=== PATIENT | female | born 1960 | race Caucasian/White ===

== ENCOUNTER 2019-08-29 21:45 | Emergency (ER) | payer MEDICARE, SELFPAY ==
[2019-08-29 21:54] VITALS: BP 125/67; PULSE 79; RESP 18; TEMP 37.2; O2SAT 98; BMI 43.2
--- NOTE | 2019-08-29 22:19 | ED.ABDPAIN ---
HPI - Abdominal Pain General Chief Complaint: Abdominal Pain Stated Complaint: Pain control Time Seen by Provider: 08/29/19 21:53 Source: patient and EMS Mode of arrival: EMS Limitations: no limitations History of Present Illness HPI narrative: 59-year-old female who has not been seen in this emergency department in the past here for evaluation of sudden onset right upper quadrant abdominal pain. Patient does have a history of neuroendocrine tumors. Has known metastasis to the liver with multiple lesions. Also has lymph nodes in the right upper quadrant as well. Patient reports that earlier today she had a sudden onset of right upper quadrant abdominal pain. States she has had this pain in the past but has not been this bad since she was 1st diagnosed with cancer. She is currently undergoing treatment for her cancer. She states that she has a very difficult time tolerating opioid pain medications. She states she currently does not take any opioid pain medications at home. At 1 point she was taking 1/2 tablet of a hydrocodone/acetaminophen at home with some Zofran was becoming very nauseous with this or her primary doctor told her to stop taking it. There was some discussion about placing her on a fentanyl patch however the patient has sleep apnea and the mass that she currently uses is damaged and so her primary doctor did not want to put her on the fentanyl patches for concerns of respiratory depression at night when she sleeps in the problems that may ensue. Patient called her primary doctor's office today for the right upper quadrant abdominal pain was told to come to the emergency department for evaluation. She declined any opiate pain medication by EMS in route. Related Data Previous Rx's Medication Instructions Recorded oxycodone-acetaminophen [Percocet] 1 tab PO Q4-6H PRN #20 tab 08/30/19 promethazine 25 mg PO Q4-6H PRN #20 tab 08/30/19 Allergies Allergy/AdvReac Type Severity Reaction Status Date / Time hydromorphone [From Dilaudid] AdvReac Verified 08/29/19 22:01 morphine AdvReac Verified 08/29/19 22:01 Penicillins AdvReac Verified 08/29/19 22:01 prochlorperazine AdvReac Verified 08/29/19 22:01 [From Compazine] Sulfa (Sulfonamide AdvReac Verified 08/29/19 22:01 Antibiotics) Review of Systems Constitutional Constitutional: Denies fever(s) Cardiovascular Cardiovascular: Denies chest pain Respiratory Comments: Shortness of breath secondary to pain in the right upper quadrant with deep breaths Gastrointestinal Gastrointestinal: Reports abdominal pain, Denies change in stool character, Denies nausea and Denies vomiting Genitourinary Genitourinary: Denies dysuria Musculoskeletal Musculoskeletal: Denies back pain and Denies arthralgias Integumentary/Breasts Skin/Breast: Denies lesions and Denies rash Neurologic Neurologic: Denies behavioral changes Psychiatric Psychiatric: Denies behavioral changes Hematologic/Lymphatic Hematologic/Lymphatic: Denies easy bleeding and Denies easy bruising [facility] Medical History Neuroendocrine cancer (Acute) Social History Smoking Status: Never smoker Social History Smoking Status: Never smoker Exam Initial Vital Signs Initial Vital Signs: Vital Signs Temperature 99.0 F 08/29/19 21:54 Pulse Rate 79 08/29/19 21:54 Respiratory Rate 18 08/29/19 21:54 Blood Pressure 125/67 08/29/19 21:54 Pulse Oximetry 98 08/29/19 21:54 Const General: No comfortable (Comfortable), well developed and well groomed Orientation: alert, awake and oriented x3 HENMT Head: normal to inspection and normocephalic Resp Effort & Inspection: normal respiratory effort Auscultation: clear to auscultation bilaterally Cardio Rate: regular rate Rhythm: regular rhythm GI Inspection: non-distended Palpation: soft, No firm and tender (Right upper quadrant/epigastric) Back/Spine/Pelvis Back: No CVA tenderness Skin Lesions: no lesions Rashes: no rashes Neuro General: alert and awake Cognition: normal cognition Speech: speech normal Extrem General: normal to inspection and capillary refill normal Psych Appearance: grossly normal and well kempt Course Orders Ordered: ED Orders 08/29/19 21:57 EKG-12 Lead Routine 08/29/19 22:20 CT abdomen pelvis w con Stat 08/29/19 22:50 Complete Blood Count AUTO DIFF Stat Comprehensive Metabolic Panel Stat Lipase Stat Discontinued Medications Hydromorphone HCl (Dilaudid) 1 mg IV NOW ONE Stop: 08/29/19 22:20 Last Admin: 08/29/19 22:42 Dose: 1 mg Documented by: NE Hydromorphone HCl (Dilaudid) 1 mg IV NOW ONE Stop: 08/29/19 23:33 Last Admin: 08/29/19 23:45 Dose: 1 mg Documented by: TAYLER Sodium Chloride (Normal Saline 0.9%) 1,000 mls @ 125 mls/hr IV CONT ALVIN Last Infusion: 08/30/19 02:06 Dose: 0 mls/hr Documented by: Admin: 08/29/19 22:43 Dose: 125 mls/hr Documented by: NE Ondansetron HCl (Zofran) 4 mg IV NOW ONE Stop: 08/29/19 22:20 Last Admin: 08/29/19 22:43 Dose: 4 mg Documented by: NE Ondansetron HCl (Zofran Odt Prepack) 1 bottle MISC SEEINSTR ONE Stop: 08/30/19 01:38 Last Admin: 08/30/19 01:51 Dose: 1 bottle Documented by: SHUBHAM Oxycodone/Acetaminophen (Endocet 5/325 Prepack) 1 bottle MISC SEEINSTR ONE Stop: 08/30/19 01:38 Last Admin: 08/30/19 01:50 Dose: 1 bottle Documented by: SHUBHAM Vital Signs Vital signs: Vital Signs - 8 hr 08/29/19 21:54 08/29/19 23:07 08/30/19 00:00 Temperature 99.0 F Pulse Rate 79 82 86 Respiratory Rate 18 16 Blood Pressure 125/67 Blood Pressure [Left Arm] 111/54 L 114/57 L Pulse Oximetry 98 93 93 08/30/19 01:40 Temperature Pulse Rate 77 Respiratory Rate 15 Blood Pressure Blood Pressure [Left Arm] 130/72 Pulse Oximetry 94 MDM - Abdominal Pain Lab Data Attestation: I reviewed the patient's lab results. Result diagrams: 08/29/19 22:50 08/29/19 22:50 Labs: Lab Results 08/29/19 08/29/19 Range/Units 22:50 22:50 WBC 8.9 (4.5-11.0) X10^3/uL RBC 4.27 (4.0-5.2) X10^6/uL Hgb 13.9 (12.0-16.0) g/dL Hct 40.4 (36-46) % MCV 94.7 (80-100) fL MCH 32.6 (26-34) PG MCHC 34.4 (30-36) % RDW 14.1 (11.6-14.8) % Plt Count 258 (150-400) X10^3/uL Neut % (Auto) 79.0 H (50-75) % Lymph % (Auto) 12.8 L (25-40) % [place] % (Auto) 4.9 (3-14) % Eos % (Auto) 2.8 (2-4) % Baso % (Auto) 0.5 (0-2) % Neut # (Auto) 7000 (1227-4957) /uL Lymph # (Auto) 1100 (3509-7747) /uL [place] # (Auto) 400 (0-900) /uL Eos # (Auto) 200 (0-450) /uL Baso # (Auto) 0 (0-100) /uL Sodium 136 L (137-145) mmol/L Potassium 4.4 (3.4-5.1) mmol/L Chloride 100 (98-107) mmol/L Carbon Dioxide 27 (22-32) mmol/L BUN 17 (7-17) mg/dL Creatinine 0.70 (0.52-1.04) mg/dL Estimated GFR > 60.0 (>60) mL/min BUN/Creatinine Ratio 24.3 H (6-22) Glucose 325 H (80-110) mg/dL Calcium 9.2 (8.4-10.2) mg/dL Total Bilirubin 0.5 (0.2-1.3) mg/dL AST 67 H (14-36) IU/L ALT 30 (9-52) IU/L Alkaline Phosphatase 246 H (38-126) U/L Total Protein 7.6 (6.3-8.2) g/dL Albumin 3.8 (3.5-5.0) g/dL Globulin 3.8 (1.7-4.1) g/dL Albumin/Globulin Ratio 1.0 (1.0-2.8) Lipase 321 H (23-300) U/L Imaging Data CT scan - abdomen: Radiologist's impression: Multiple ill-defined hypoattenuating lesions present within the liver. Additionally there are enlarged emil hepatic lymph nodes. Findings right suspicion for metastatic disease. Recommend correlation with prior imaging and clinical history of available. Multiple coli lithiasis present within the gallbladder no stigmata of cholecystitis. Multi fenestrated anterior abdominal wall hernias at midline. Mild to moderate colonic diverticulosis without evidence of diverticulitis ECG Data Attestation: I personally reviewed and interpreted this ECG as follows: Prior ECG tracings: not available for review Interpretation: Sinus rhythm Ventricular rate is 77 Normal axis Normal QRS Normal QTC No ST T wave changes MDM Narrative Medical decision making narrative: Patient did tolerate the IV Dilaudid when it was given relatively slowly. She did not have any vomiting here in the ER. She did report some improvement of her right upper quadrant pain after the medications however she states that it does hurt when she takes a very deep breath. She does have cholelithiasis however no signs of cholecystitis. I do not believe that this is the cause of her symptoms. I have a high suspicion that her symptoms are related to the neuroendocrine tumors which are known in the right upper quadrant. Her sister who was with the patient at bedside states that they were just told recently that there is lymph node involvement which is new over the past several months. Despite not having prior CT scans to compare I do not think that there is any emergent issue with the findings in the right upper quadrant. Had a long discussion with the patient and her sister regarding her symptoms. We did discuss being admitted to the hospital for pain control however I informed them that since she is not on any oral pain medications at home and has not been on Phenergan as an alternative to the Zofran for her nausea that I feel that a trial of oral pain medications with changing the nausea medication would be a reasonable approach to her symptoms. I did inform the patient that I feel that spending as much time at home and outside of the hospital situation would be the best for her given her current clinical scenario. I did inform them that she could return to the emergency department at any point for symptoms were not controlled. She is working on getting the CPAP mask replaced so that she could potentially try other medications such as fentanyl patches. She is under the care with her primary doctor regarding this. After this discussion they did decide to go home with medications. They were provided pre packs for some of them in prescriptions. They expressed understanding and agreement this plan. Discharge Plan Departure Patient Disposition: Home Clinical Impression: Neuro-endocrine cancer Abdominal pain Qualifiers: Abdominal location: right upper quadrant Qualified Code(s): R10.11 - Right upper quadrant pain Discharge Date/Time: 08/30/19 02:08 Instructions: Coping With Pain Related to Cancer and Chemotherapy Activity Restrictions/Additional Instructions: I recommend that tomorrow you contact your primary provider and also your oncologist to discuss further workup. Take the medications as directed. Return to the emergency department for any new or worsening symptoms Prescriptions: New oxycodone-acetaminophen [Percocet] 5-325 mg tablet 1 tab PO Q4-6H PRN (Reason: pain) Qty: 20 RF: 0 promethazine 25 mg tablet 25 mg PO Q4-6H PRN (Reason: nausea and vomiting) Qty: 20 RF: 0
--- NOTE | 2019-08-29 22:20 | DI.CT.S_ITS ---
PROCEDURE: CT ABDOMEN PELVIS W CON INDICATIONS: Right-sided abdominal pain TECHNIQUE: After the administration of intravenous contrast, 5 mm thick sections acquired from the diaphragm to the symphysis. 5 mm coronal and sagittal reformats were acquired. For radiation dose reduction, the following was used: automated exposure control, adjustment of mA and/or kV according to patient size. COMPARISON: None. FINDINGS: Image quality: Excellent. ABDOMEN: Lung bases: Lung bases are clear. Heart size is normal. Solid organs: There are multiple hepatic hypodensities of the left and right hepatic lobes. The largest lesion is in the petrous segment of right hepatic lobe (segment VII) and 2.2 cm. Liver demonstrates nodular contour suggesting cirrhosis. Liver is normal in size. There is a recannulized umbilical vein, likely secondary to portal hypertension. Gallbladder contains gallstones. Biliary system is non dilated. There are punctate foci of calcification in the pancreas, likely sequelae of chronic pancreatitis. There are several small low density nodule in spleen. Spleen is normal in size. No adrenal nodules. Kidneys demonstrate normal size and enhancement, without hydronephrosis. Peritoneum and bowel: Normal appendix. Bowel loops demonstrate normal wall thickness and caliber. There are a few colonic diverticula. No active diverticulitis. No free fluid or air. Nodes and vessels: Mildly enlarged periportal lymph nodes are present, measuring 1.5 cm. No mesenteric adenopathy by size criteria. Aorta and inferior vena cava are normal in size. Miscellaneous: There is a fat containing ventral hernia. There are multiple subcutaneous soft tissue nodules over the left area. PELVIS: Genitourinary: Bladder wall thickness is normal. Uterus is normal. Ovaries are not well seen. No pathological free fluid in pelvis. Miscellaneous: No inguinal hernias or adenopathy. Bones: No suspicious bony lesions. No vertebral body compression fractures. Degenerative changes in thoracic and lumbar spine. IMPRESSION: 1. There are multiple small hypodensities in liver concerning for metastatic disease. Liver protocol MRI is recommended for further evaluation. 2. Liver demonstrates nodular contour suggesting cirrhosis. Recannulized umbilical vein suggesting portal hypertension. 3. Several tiny low density nodules in spleen, too small to further characterize, therefore, indeterminate. 4. Mild periportal lymphadenopathy. 5. Diverticulosis without diverticulitis. 6. Cholelithiasis. 7. Fat containing ventral hernia. 8. There are multiple small subcutaneous nodules over the iliac area, uncertain etiology. Recommend clinical correlation and followup. Dictated by: Bill Higgins M.D. on 08/30/2019 at 7:59 Approved by: Bill Higgins M.D. on 08/30/2019 at 8:16
[2019-08-29] MEDS: HYDROMORPHONE 1 MG INJ IV ×2 (22:42→23:45)
[2019-08-29] MEDS: ONDANSETRON 4 MG/2 ML INJ IV (22:43)
[2019-08-29] MEDS: SODIUM CHLORIDE 0.9% 1,000 ML 125 ML IV (22:43)
[2019-08-29 23:07] VITALS: BP 111/54; PULSE 82; RESP 16; O2SAT 93
[2019-08-29 23:11] LABS: Add Manual Diff / Slide Review NO; Basophils Absolute Auto 0 /uL (0-100); Basophils Percent Auto 0.5 % (0-2); Eosinophils Absolute Auto 200 /uL (0-450); Eosinophils Percent Auto 2.8 % (2-4); Hematocrit 40.4 % (36-46); Hemoglobin 13.9 g/dL (12.0-16.0); Lymphocytes Absolute Auto 1100 /uL (1100-4500); Lymphocytes Percent Auto 12.8 % (25-40); Mean Corpuscular HGB Conc 34.4 % (30-36); Mean Corpuscular Hemoglobin 32.6 PG (26-34); Mean Corpuscular Volume 94.7 fL (80-100); Monocytes Absolute Auto 400 /uL (0-900); Monocytes Percent Auto 4.9 % (3-14); Neutrophils Absolute Auto 7000 /uL (1500-7000); Platelet Count 258 X10^3/uL (150-400); Red Blood Cell Count 4.27 X10^6/uL (4.0-5.2); Red Cell Distribution Width 14.1 % (11.6-14.8); White Blood Cell Count 8.9 X10^3/uL (4.5-11.0)
[2019-08-29 23:17] LABS: Alanine Aminotransferase 30 IU/L (9-52); Albumin 3.8 g/dL (3.5-5.0); Alkaline Phosphatase 246 U/L (38-126); Aspartate Aminotransferase 67 IU/L (14-36); BUN Creatinine Ratio 24.3 (6-22); Bilirubin Total 0.5 mg/dL (0.2-1.3); Blood Urea Nitrogen 17 mg/dL (7-17); Calcium 9.2 mg/dL (8.4-10.2); Carbon Dioxide 27 mmol/L (22-32); Chloride 100 mmol/L (98-107); Estimated Glomerular Filt Rate > 60.0 mL/min (>60); Globulin 3.8 g/dL (1.7-4.1); Glucose 325 mg/dL (80-110); Lipase 321 U/L (23-300); Sodium 136 mmol/L (137-145); Total Protein 7.6 g/dL (6.3-8.2)
[2019-08-29 23:18] LABS: HEMOLYSIS 96 (0-50); Potassium 4.4 mmol/L (3.4-5.1)
[2019-08-30] VITALS: BP 114/57; PULSE 86; O2SAT 93
[2019-08-30 01:40] VITALS: BP 130/72; PULSE 77; RESP 15; O2SAT 94
[2019-08-30] MEDS: OXYCODONE/APAP 5/325 PREPACK 1 BOTTLE MISC (01:50)
[2019-08-30] MEDS: ONDANSETRON 4 MG ODT PREPACK 1 BOTTLE MISC (01:51)
== END 2019-08-30 02:08 | disposition home or self-care (01) ==
PROVIDERS: Emergency Provider Emergency Medicine
DX: C7A.8 Other malignant neuroendocrine tumors (principal); R10.11 Right upper quadrant pain; R11.2 Nausea with vomiting, unspecified; R06.02 Shortness of breath
CPT/HCPCS: 36415; 74177; 80053; 83690; 85025; 93005; 96361; 96374; 96375; 96376; 99283; 99285; J1170; J2405; Q9967

== ENCOUNTER → 2019-09-15 13:22 | Outpatient (CLI) | payer MEDICARE, SELFPAY ==
--- NOTE | 2019-09-15 | DI.CT.S_ITS ---
PROCEDURE: CT CHEST W CON INDICATIONS: epigastric pain TECHNIQUE: After the administration of intravenous contrast, 5 mm thick sections acquired from the pulmonary apices to the posterior costophrenic angles. 1 mm axial lung, 5 mm thick coronal and sagittal reformats and 7 mm axial MIP were acquired. For radiation dose reduction, the following was used: automated exposure control, adjustment of mA and/or kV according to patient size. COMPARISON: [facility], CT, CT ABDOMEN PELVIS W CON, 08/30/2019, 0:30. FINDINGS: Image quality: Excellent. Lungs and pleura: No acute air space opacities. No pleural effusions or pneumothorax. Central and peripheral airways are patent and normal in caliber. Mediastinum: Heart size is mildly enlarged. No pericardial effusion. Mildly enlarged mediastinal lymph nodes are seen measures up to 12 mm in short axis diameter in the precarinal space. No gross hilar lymphadenopathy by size criteria. Thoracic aorta and central pulmonary arteries are normal in size. Esophagus is normal in caliber. No hiatal hernia. Bones and chest wall: No suspicious bony lesions. No vertebral body compression fractures. No axillary or supraclavicular adenopathy by size criteria. Thyroid gland is within normal limits. Abdomen: Numerous hypodense lesions are seen scattered throughout visualized liver parenchyma, unchanged from previous CT of abdomen and pelvis study consistent with liver metastasis. Lobulated liver contour suggestive of cirrhosis is also seen. There are multiple calcified gallstones. No gallbladder wall thickening or pericholecystic fluid. Upper abdominal bowel loops are normal in caliber. IMPRESSION: 1. No thoracic aortic aneurysm or dissection. No gross pulmonary emboli. Mild cardiomegaly, no pericardial effusion. 2. Nonspecific mildly enlarged mediastinal lymph nodes. No supraclavicular or axillary lymphadenopathy. 3. Bilateral lung garcia are clear. 4. Suggestion of extensive liver metastatic disease. Cholelithiasis, no CT evidence of acute cholecystitis. Dictated by: Uriel Adames M.D. on 09/15/2019 at 14:28 Approved by: Uriel Adames M.D. on 09/15/2019 at 14:38
[2019-09-15 13:48] LABS: Add Manual Diff / Slide Review NO; Basophils Absolute Auto 0 /uL (0-100); Basophils Percent Auto 0.3 % (0-2); Eosinophils Absolute Auto 200 /uL (0-450); Eosinophils Percent Auto 2.4 % (2-4); Hematocrit 41.4 % (36-46); Lymphocytes Absolute Auto 900 /uL (1100-4500); Lymphocytes Percent Auto 9.9 % (25-40); Mean Corpuscular HGB Conc 33.9 % (30-36); Mean Corpuscular Hemoglobin 32.1 PG (26-34); Mean Corpuscular Volume 94.5 fL (80-100); Monocytes Absolute Auto 600 /uL (0-900); Monocytes Percent Auto 6.7 % (3-14); Neutrophils Absolute Auto 7200 /uL (1500-7000); Neutrophils Percent Auto 80.7 % (50-75); Platelet Count 378 X10^3/uL (150-400); Red Blood Cell Count 4.38 X10^6/uL (4.0-5.2); White Blood Cell Count 8.9 X10^3/uL (4.5-11.0)
[2019-09-15 14:00] LABS: Alanine Aminotransferase 35 IU/L (9-52); Albumin 3.9 g/dL (3.5-5.0); Alkaline Phosphatase 281 U/L (38-126); Amylase 53 U/L (30-110); Aspartate Aminotransferase 68 IU/L (14-36); Bilirubin Total 0.6 mg/dL (0.2-1.3); Blood Urea Nitrogen 14 mg/dL (7-17); Calcium 9.3 mg/dL (8.4-10.2); Carbon Dioxide 32 mmol/L (22-32); Chloride 98 mmol/L (98-107); Estimated Glomerular Filt Rate > 60.0 mL/min (>60); Globulin 3.8 g/dL (1.7-4.1); Glucose 228 mg/dL (80-110); HEMOLYSIS < 15 (0-50); Lipase 35 U/L (23-300); Potassium 4.2 mmol/L (3.4-5.1); Sodium 137 mmol/L (137-145); Total Protein 7.7 g/dL (6.3-8.2)
== END ==
PROVIDERS: PCP Internal Medicine; Visit Provider Internal Medicine
DX: R10.13 Epigastric pain (principal)
CPT/HCPCS: 36415; 71260; 80053; 82150; 83690; 84484; 85025

== ENCOUNTER 2019-09-15 16:17 | Emergency (ER) | payer MEDICARE, SELFPAY ==
[2019-09-15 16:25] VITALS: PULSE 72; RESP 20; O2SAT 100
--- NOTE | 2019-09-15 16:26 | DI.RAD.S_ITS ---
PROCEDURE: XR CHEST 2V INDICATIONS: chest pain TECHNIQUE: 2 views of the chest were acquired. COMPARISON: None. FINDINGS: Surgical changes and devices: Surgical clips in the right breast tissue. Lungs and pleura: Lungs are clear. No pleural effusions or pneumothorax. Mediastinum: Mediastinal contours are normal. Heart size is normal. Bones and chest wall: No suspicious bony abnormalities. Soft tissues appear unremarkable. IMPRESSION: No acute cardiopulmonary disease. Dictated by: Fauzia Rodriguez M.D. on 09/15/2019 at 17:40 Approved by: Fauzia Rodriguez M.D. on 09/15/2019 at 17:41
[2019-09-15 16:53] LABS: Add Manual Diff / Slide Review NO; Basophils Absolute Auto 0 /uL (0-100); Basophils Percent Auto 0.2 % (0-2); Eosinophils Absolute Auto 200 /uL (0-450); Eosinophils Percent Auto 2.6 % (2-4); Hematocrit 41.3 % (36-46); Lymphocytes Absolute Auto 900 /uL (1100-4500); Lymphocytes Percent Auto 10.7 % (25-40); Mean Corpuscular HGB Conc 33.8 % (30-36); Mean Corpuscular Hemoglobin 31.7 PG (26-34); Mean Corpuscular Volume 93.8 fL (80-100); Monocytes Absolute Auto 500 /uL (0-900); Monocytes Percent Auto 6.5 % (3-14); Neutrophils Absolute Auto 6400 /uL (1500-7000); Platelet Count 387 X10^3/uL (150-400); Red Blood Cell Count 4.41 X10^6/uL (4.0-5.2); Red Cell Distribution Width 14.1 % (11.6-14.8)
[2019-09-15 17:00] LABS: INR 1.2 (0.9-1.3); Prothrombin Time 13.7 SECONDS (10.1-12.7)
[2019-09-15 17:03] LABS: PTT Partial Thromboplastin Tim 35 SECONDS (26.4-36.2)
[2019-09-15 17:09] LABS: Alanine Aminotransferase 28 IU/L (9-52); Albumin Globulin Ratio 1.1 (1.0-2.8); Alkaline Phosphatase 277 U/L (38-126); Aspartate Aminotransferase 61 IU/L (14-36); BUN Creatinine Ratio 21.4 (6-22); Bilirubin Total 0.7 mg/dL (0.2-1.3); Blood Urea Nitrogen 15 mg/dL (7-17); Calcium 9.3 mg/dL (8.4-10.2); Carbon Dioxide 29 mmol/L (22-32); Chloride 97 mmol/L (98-107); Creatine Kinase 235 U/L (30-135); Estimated Glomerular Filt Rate > 60.0 mL/min (>60); Globulin 3.7 g/dL (1.7-4.1); Glucose 302 mg/dL (80-110); HEMOLYSIS < 15 (0-50); Lipase 65 U/L (23-300); Sodium 137 mmol/L (137-145); Total Protein 7.7 g/dL (6.3-8.2)
--- NOTE | 2019-09-15 17:11 | ED_ITS ---
HPI - Chest Pain General Chief Complaint: Chest Pain Stated Complaint: sent by doctor due to abnormal lab results and CP Time Seen by Provider: 09/15/19 16:46 Source: patient and family Mode of arrival: Ambulatory Limitations: no limitations History of Present Illness HPI narrative: 59F nonsmoker with history of breast cancer and neuroendocrine cancer being managed by Jocelyn weber presents for evaluation of abnormal labs. Patient has had an episode of some chest pain that radiated into her neck on Friday, she says it felt kind of like spasms and was intense but it faded and she did not think anything more of it. Since then she has been a bit fatigued and under the weather but not much in the way of other symptoms. She saw her primary care provider as an outpatient who ordered some labs and noted a cri tical troponin of 6.0. She also had a CT scan of her chest with IV contrast. She was sent here for further evaluation. She denies any provocation, palliation of her symptoms the radiation that she mentioned was on Friday but not since. She has no ongoing pain just profound fatigue and exhaustion. MD complaint: chest pain Onset (ago): day(s) Duration: improved and now resolved Onset: during rest Pain location: substernal Severity: moderate Quality: tightness and aching Pain radiation: none Related Data Home Medications Medication Instructions Recorded Confirmed cholecalciferol (vitamin D3) 50,000 unit PO QWEEK 09/15/19 09/15/19 duloxetine 30 mg PO BID 09/15/19 09/15/19 gabapentin 100 mg PO DIRECTED 09/15/19 09/15/19 insulin aspart U-100 [Novolog 0 unit SUBCUT DIRECTED 09/15/19 Flexpen U-100 Insulin] insulin degludec [Tresiba 90 unit SUBCUT DAILY 09/15/19 FlexTouch U-200] letrozole 2.5 mg PO DAILY 09/15/19 09/15/19 lorazepam 1 mg PO BEDTIME PRN 09/15/19 09/15/19 naloxone [Narcan] 1 spray INTRANASAL PRN PRN 09/15/19 09/15/19 nystatin-triamcinolone 1 applic TOPICAL BID 09/15/19 09/15/19 oxycodone 5 - 10 mg PO Q4-6H PRN 09/15/19 09/15/19 Previous Rx's Medication Instructions Recorded promethazine 25 mg PO Q4-6H PRN #20 tab 08/30/19 Allergies Allergy/AdvReac Type Severity Reaction Status Date / Time hydromorphone [From Dilaudid] AdvReac Verified 08/29/19 22:01 morphine AdvReac Verified 08/29/19 22:01 Penicillins AdvReac Verified 08/29/19 22:01 prochlorperazine AdvReac Verified 08/29/19 22:01 [From Compazine] Sulfa (Sulfonamide AdvReac Verified 08/29/19 22:01 Antibiotics) Review of Systems Constitutional Constitutional: Denies chills, Denies fatigue, Denies fever(s), Denies frequent falls, Denies lethargy and Reports weakness Eyes Eyes: Denies change in vision, Denies eye discharge, Denies irritation and Denies loss of vision ENT Ears, Nose, Mouth, and Throat: Denies change in voice, Denies dizziness, Denies neck pain, Denies sore throat and Denies throat swelling Cardiovascular Cardiovascular: Reports chest pain, Denies irregular heart rhythm, Denies lightheadedness, Denies palpitations, Denies dyspnea, Denies dyspnea on exertion and Denies orthopnea Respiratory Respiratory: Denies cough, Denies dyspnea, Denies dyspnea on exertion and Denies wheezing Gastrointestinal Gastrointestinal: Denies abdominal pain, Denies change in bowel habits, Denies diarrhea, Denies nausea and Denies vomiting Genitourinary Genitourinary: Denies hematuria, Denies flank pain, Denies urinary incontinence and Denies urinary urgency Musculoskeletal Musculoskeletal: Denies back pain, Denies muscle weakness, Denies neck pain, Denies numbness and Denies tingling Integumentary/Breasts Skin/Breast: Denies pruritus, Denies erythema, Denies rash and Denies wounds Neurologic Neurologic: Denies behavioral changes, Denies confusion, Denies dizziness, Denies frequent falls, Denies loss of vision, Denies numbness, Denies tingling and Reports weakness Psychiatric Psychiatric: Denies anxiety, Denies behavioral changes, Denies confusion, Denies depression, Denies homicidal ideation and Denies suicidal ideation Endocrine Endocrine: Denies fatigue, Denies flushing and Denies palpitations Hematologic/Lymphatic Hematologic/Lymphatic: Denies easy bruising Allergic/Immunologic Allergic/Immunologic: Denies urticaria, Denies throat swelling and Denies wheezing Patient History Medical History Neuroendocrine cancer (Acute) Social History Smoking Status: Never smoker alcohol intake frequency: 0-2 drinks per day Substance Use Type: does not use Exam Narrative Exam Narrative: GENERAL: [59] year old patient appears stated age. Well-nourished, well-developed patient, in mild distress. HEAD: Atraumatic. Normocephalic. EYES: Pupils equal round and reactive. Extraocular motions intact. No scleral icterus. No injection or drainage. ENT: Nose without bleeding, purulent drainage. Throat without erythema, tonsillar hypertrophy or exudate. Airway patent. NECK: Trachea midline. Non tender CARDIOVASCULAR: Regular rate and rhythm without murmurs, gallops, or rubs. RESPIRATORY: Clear to auscultation. Breath sounds equal bilaterally. No wheezes, rales, or rhonchi. GASTROINTESTINAL: Abdomen soft, non-tender, nondistended. EXTREMITIES: No edema or joint tenderness. BACK: Nontender without deformity or crepitance. No flank tenderness. NEURO: AOx3. SKIN: No rash or erythema of visible areas Initial Vital Signs Initial Vital Signs: Vital Signs Pulse Rate 72 09/15/19 16:25 Respiratory Rate 20 09/15/19 16:25 Pulse Oximetry 100 09/15/19 16:25 Course Orders Ordered: ED Orders 09/15/19 16:26 XR chest 2V Stat 09/15/19 16:31 EKG-12 Lead Stat 09/15/19 16:46 Complete Blood Count AUTO DIFF Stat Comprehensive Metabolic Panel Stat Lipase Stat Partial Thromboplastin Time Stat Prothrombin Time INR Stat Troponin & CK Cardiac Panel Stat Heparin Sodium/Dextrose (Heparin Drip) 25,000 unit in 500 mls @ 20 mls/hr IV CONT ALVIN; Protocol Last Admin: 09/15/19 18:59 Dose: 1,000 units/hr, 20 mls/hr Documented by: CRISTINA Discontinued Medications Aspirin (Aspirin Chew) 324 mg PO NOW ONE Stop: 09/15/19 18:34 Last Admin: 09/15/19 18:58 Dose: 324 mg Documented by: CRISTINA Heparin Sodium (Porcine) (Heparin) 7,500 unit IV NOW ONE Stop: 09/15/19 18:34 Last Admin: 09/15/19 18:59 Dose: 7,500 unit Documented by: CHAPISOTEM Consultations Consultation #1: call to hospitalist at , happy to accept. Vital Signs Vital signs: Vital Signs - 8 hr 09/15/19 16:25 09/15/19 17:31 Temperature 98.5 F Pulse Rate 72 70 Respiratory Rate 20 18 Blood Pressure [Left Wrist] 97/60 Pulse Oximetry 100 MDM - Chest Pain Lab Data Result diagrams: 09/15/19 16:46 09/15/19 16:46 Labs: Lab Results 09/15/19 09/15/19 09/15/19 Range/Units 16:46 16:46 16:46 WBC 8.0 (4.5-11.0) X10^3/uL RBC 4.41 (4.0-5.2) X10^6/uL Hgb 14.0 (12.0-16.0) g/dL Hct 41.3 (36-46) % MCV 93.8 (80-100) fL MCH 31.7 (26-34) PG MCHC 33.8 (30-36) % RDW 14.1 (11.6-14.8) % Plt Count 387 (150-400) X10^3/uL Neut % (Auto) 80.0 H (50-75) % Lymph % (Auto) 10.7 L (25-40) % [place] % (Auto) 6.5 (3-14) % Eos % (Auto) 2.6 (2-4) % Baso % (Auto) 0.2 (0-2) % Neut # (Auto) 6400 (0158-6008) /uL Lymph # (Auto) 900 L (2316-0703) /uL [place] # (Auto) 500 (0-900) /uL Eos # (Auto) 200 (0-450) /uL Baso # (Auto) 0 (0-100) /uL PT 13.7 H (10.1-12.7) SECONDS INR 1.2 (0.9-1.3) APTT 35 (26.4-36.2) SECONDS Sodium 137 (137-145) mmol/L Potassium 4.0 (3.4-5.1) mmol/L Chloride 97 L (98-107) mmol/L Carbon Dioxide 29 (22-32) mmol/L BUN 15 (7-17) mg/dL Creatinine 0.70 (0.52-1.04) mg/dL Estimated GFR > 60.0 (>60) mL/min BUN/Creatinine Ratio 21.4 (6-22) Glucose 302 H (80-110) mg/dL Calcium 9.3 (8.4-10.2) mg/dL Total Bilirubin 0.7 (0.2-1.3) mg/dL AST 61 H (14-36) IU/L ALT 28 (9-52) IU/L Alkaline Phosphatase 277 H (38-126) U/L Total Creatine Kinase 235 H (30-135) U/L CK-MB (CK-2) 7.60 H (<2.37) ng/mL CK-MB (CK-2) Rel Index 3.2 (1.5-5.0) % Troponin I 5.910 H* (0.01-0.034) ng/mL Total Protein 7.7 (6.3-8.2) g/dL Albumin 4.0 (3.5-5.0) g/dL Globulin 3.7 (1.7-4.1) g/dL Albumin/Globulin Ratio 1.1 (1.0-2.8) Lipase 65 D (23-300) U/L Imaging Data CT scan - chest: Radiologist's impression: [address] [address] [address] Scan Report Signed Patient: Shirley Davila [facility]#: [id number] : 8Acct:[id number] Age/Sex: 59 / FDate of Service: 09/15/19 Loc: CT Accession Number: [id number] Procedure: CT chest w con Ordering Provider: Jill Strickland MD PROCEDURE: CT CHEST W CON INDICATIONS: epigastric pain TECHNIQUE: After the administration of intravenous contrast, 5 mm thick sections acquired from the pulmonary apices to the posterior costophrenic angles. 1 mm axial lung, 5 mm thick coronal and sagittal reformats and 7 mm axial MIP were acquired. For radiation dose reduction, the following was used: automated exposure control, adjustment of mA and/or kV according to patient size. COMPARISON: [facility], CT, CT ABDOMEN PELVIS W CON, 08/30/2019, 0:30. FINDINGS: Image quality: Excellent. Lungs and pleura: No acute air space opacities. No pleural effusions or pneumothorax. Central and peripheral airways are patent and normal in caliber. Mediastinum: Heart size is mildly enlarged. No pericardial effusion. Mildly enlarged mediastinal lymph nodes are seen measures up to 12 mm in short axis diameter in the precarinal space. No gross hilar lymphadenopathy by size criteria. Thoracic aorta and central pulmonary arteries are normal in size. Esophagus is normal in caliber. No hiatal hernia. Bones and chest wall: No suspicious bony lesions. No vertebral body compression fractures. No axillary or supraclavicular adenopathy by size criteria. Thyroid gland is within normal limits. Abdomen: Numerous hypodense lesions are seen scattered throughout visualized liver parenchyma, unchanged from previous CT of abdomen and pelvis study consistent with liver metastasis. Lobulated liver contour suggestive of cirrhosis is also seen. There are multiple calcified gallstones. No gallbladder wall thickening or pericholecystic fluid. Upper abdominal bowel loops are normal in caliber. IMPRESSION: 1. No thoracic aortic aneurysm or dissection. No gross pulmonary emboli. Mild cardiomegaly, no pericardial effusion. 2. Nonspecific mildly enlarged mediastinal lymph nodes. No supraclavicular or axillary lymphadenopathy. 3. Bilateral lung garcia are clear. 4. Suggestion of extensive liver metastatic disease. Cholelithiasis, no CT evidence of acute cholecystitis. Dictated by: Uriel Adames M.D. on 09/15/2019 at 14:28 Approved by: Uriel Adames M.D. on 09/15/2019 at 14:38 Critical Care Time Critical Care Time Critical Care Time: Yes Total Critical Care Time: 30 Attestation: The high probability of a clinically significant, sudden or life threatening deterioration of the [CV] system(s) required my full and direct attention, intervention and personal management. The aggregate critical care time was [30] minutes. This time is in addition to time spent performing reported procedures but includes the following: [x] Data Review and interpretation [x] Patient assessment and monitoring of vital signs [x] Documentation [x] Medication orders and management Discharge Plan Departure [facility] Clinical Impression: Acute non-ST elevation myocardial infarction (NSTEMI) Prescriptions: No Action promethazine 25 mg tablet 25 mg PO Q4-6H PRN (Reason: nausea and vomiting) Qty: 20 RF: 0 duloxetine 30 mg capsule,delayed release(DR/EC) 30 mg PO BID RF: 0 nystatin-triamcinolone 100,000-0.1 unit/g-% cream 1 applic TOPICAL BID RF: 0 gabapentin 100 mg capsule 100 mg PO DIRECTED RF: 0 lorazepam 1 mg tablet 1 mg PO BEDTIME PRN (Reason: Anxiety) RF: 0 letrozole 2.5 mg tablet 2.5 mg PO DAILY RF: 0 Novolog Flexpen U-100 Insulin 100 unit/mL (3 mL) insulin pen 0 unit SUBCUT DIRECTED RF: 0 cholecalciferol (vitamin D3) 50,000 unit capsule 50,000 unit PO QWEEK RF: 0 oxycodone 10 mg tablet 5 - 10 mg PO Q4-6H PRN (Reason: pain) RF: 0 Tresiba FlexTouch U-200 200 unit/mL (3 mL) insulin pen 90 unit SUBCUT DAILY RF: 0 Narcan 4 mg/actuation spray,non-aerosol 1 spray INTRANASAL PRN PRN (Reason: Opioid Overdose) RF: 0 Referrals: Jill Strickland MD [Primary Care Provider] -
[2019-09-15 17:24] LABS: CKMB % Relative Index 3.2 % (1.5-5.0)
[2019-09-15 17:31] VITALS: BP 97/60; PULSE 70; RESP 18; TEMP 36.9
[2019-09-15] MEDS: ASPIRIN 81 MG CHEW TAB 324 MG PO (18:58)
[2019-09-15] MEDS: HEPARIN DRIP 25,000 UNIT/500 ML IV.SOLN 20 UNIT IV (18:59)
[2019-09-15] MEDS: HEPARIN 5,000 UNIT/ML VIAL 7500 UNIT IV (18:59)
--- NOTE | 2019-09-28 23:37 | PC.NURSE ---
Pt received appro 10ml heparin,pt transferred,heparin infusing upon transfer. Pts fluid stop time for ED 192
== END 2019-09-15 19:41 | disposition short-term general hospital (02) ==
PROVIDERS: Emergency Provider Emergency Medicine; PCP Internal Medicine
DX: I21.4 Non-ST elevation (NSTEMI) myocardial infarction (principal); R10.13 Epigastric pain; R79.89 Other specified abnormal findings of blood chemistry; R07.9 Chest pain, unspecified
CPT/HCPCS: 36415; 71046; 71260; 80053; 82150; 82550; 82553; 83690; 84484; 85025; 85610; 85730; 93005; 96365; 96375; 99283; 99291; J1644

== ENCOUNTER → 2019-11-06 11:57 | Outpatient (CLI) | payer MEDICARE, SELFPAY ==
[2019-11-06 12:21] LABS: Bacteria Urine None Seen; RBC Urine None Seen (0-5/HPF); WBC Urine None Seen (0-5/HPF)
[2019-11-06 12:42] LABS: Appearance Urine UA CLEAR; Bilirubin Urine UA NEGATIVE (NEGATIVE); Color Urine UA YELLOW; Glucose Urine UA 2+ g/dL (Negative); Ketones Urine UA NEGATIVE (NEGATIVE); Leukocyte Esterase Urine UA NEGATIVE (NEGATIVE); Nitrite Urine UA NEGATIVE (Negative); Occult Blood Urine UA NEGATIVE (Negative); Protein Urine UA NEGATIVE (Negative); Urobilinogen Urine UA 0.2 E.U./dL (0.2)
[2019-11-06 12:48] LABS: Add Manual Diff / Slide Review NO; Basophils Absolute Auto 0 /uL (0-100); Basophils Percent Auto 0.7 % (0-2); Eosinophils Absolute Auto 200 /uL (0-450); Eosinophils Percent Auto 3.3 % (2-4); Hematocrit 35.9 % (36-46); Hemoglobin 12.2 g/dL (12.0-16.0); Lymphocytes Absolute Auto 800 /uL (1100-4500); Lymphocytes Percent Auto 11.8 % (25-40); Mean Corpuscular HGB Conc 34.1 % (30-36); Mean Corpuscular Hemoglobin 31.7 PG (26-34); Mean Corpuscular Volume 93.1 fL (80-100); Monocytes Absolute Auto 400 /uL (0-900); Neutrophils Absolute Auto 5600 /uL (1500-7000); Neutrophils Percent Auto 78.2 % (50-75); Platelet Count 324 X10^3/uL (150-400); Red Blood Cell Count 3.85 X10^6/uL (4.0-5.2); Red Cell Distribution Width 14.1 % (11.6-14.8); White Blood Cell Count 7.1 X10^3/uL (4.5-11.0)
[2019-11-06 12:53] LABS: D Dimer 327 ng/mL (<230)
[2019-11-06 12:54] LABS: Culture Indicated Urine Cult Not Indicated
[2019-11-06 12:55] LABS: Alanine Aminotransferase 23 IU/L (<35); Albumin 3.5 g/dL (3.5-5.0); Alkaline Phosphatase 255 U/L (38-126); Amylase 35 U/L (30-110); Aspartate Aminotransferase 31 IU/L (14-36); BUN Creatinine Ratio 21.7 (6-22); Bilirubin Total 0.4 mg/dL (0.2-1.3); Blood Urea Nitrogen 13 mg/dL (7-17); Calcium 8.7 mg/dL (8.4-10.2); Carbon Dioxide 30 mmol/L (22-32); Chloride 100 mmol/L (98-107); Estimated Glomerular Filt Rate > 60.0 mL/min (>60); Globulin 3.5 g/dL (1.7-4.1); Glucose 330 mg/dL (80-110); HEMOLYSIS < 15 (0-50); Lipase 250 U/L (23-300); Potassium 4.1 mmol/L (3.4-5.1); Sodium 137 mmol/L (137-145)
== END ==
PROVIDERS: PCP Internal Medicine; Visit Provider Internal Medicine
DX: R10.13 Epigastric pain (principal)
CPT/HCPCS: 80053; 81001; 82150; 83690; 85025; 85379; 87086

== ENCOUNTER 2019-11-06 21:31 | Emergency (ER) | payer MEDICARE, SELFPAY ==
[2019-11-06 21:56] VITALS: BP 124/56; PULSE 74; RESP 18; TEMP 37; O2SAT 97; BMI 42.1
[2019-11-06 22:00] VITALS: BP 107/68; PULSE 73; RESP 15; O2SAT 97
[2019-11-06 23:00] VITALS: BP 96/48; PULSE 74; RESP 19; O2SAT 98
--- NOTE | 2019-11-06 23:06 | ED.ABDPAIN ---
HPI - Abdominal Pain General Chief Complaint: Abdominal Pain Stated Complaint: lower right back pain Time Seen by Provider: 11/06/19 22:41 Source: patient Mode of arrival: Ambulatory Limitations: no limitations History of Present Illness HPI narrative: This is a 59-year-old female who comes in with complaint of right lower back pain. Patient states it comes around to the front as well. She states she does have gallstones. She is also currently starting treatment for neuroendocrine cancer, she has pulses start radiation on December 03 she has had breast cancer which is stage II, uterine cancer as well. She states that she had a lumpectomy and Y-90 radiation. Patient denies any intra-abdominal surgeries. She denies fevers. She states she had a cold last week but that that has resolved after some oral antibiotics. She denies any chest pain or shortness of breath her right side abdominal pain is worse with deep breath, it's also worse with movement. Patient states it came on fairly quickly last night and has been constant. Nothing seems to make it better. She did try some ibuprofen with minimal to no improvement. She states she has had some small bowel movements that have been soft. She did notice that her urine was dark and cloudy. Related Data Home Medications Medication Instructions Recorded Confirmed cholecalciferol (vitamin D3) 50,000 unit PO QWEEK 09/15/19 09/15/19 duloxetine 30 mg PO BID 09/15/19 09/15/19 gabapentin 100 mg PO DIRECTED 09/15/19 09/15/19 insulin aspart U-100 [Novolog 0 unit SUBCUT DIRECTED 09/15/19 Flexpen U-100 Insulin] insulin degludec [Tresiba 90 unit SUBCUT DAILY 09/15/19 FlexTouch U-200] letrozole 2.5 mg PO DAILY 09/15/19 09/15/19 lorazepam 1 mg PO BEDTIME PRN 09/15/19 09/15/19 naloxone [Narcan] 1 spray INTRANASAL PRN PRN 09/15/19 09/15/19 nystatin-triamcinolone 1 applic TOPICAL BID 09/15/19 09/15/19 oxycodone 5 - 10 mg PO Q4-6H PRN 09/15/19 09/15/19 Previous Rx's Medication Instructions Recorded promethazine 25 mg PO Q4-6H PRN #20 tab 08/30/19 Allergies Allergy/AdvReac Type Severity Reaction Status Date / Time hydromorphone [From Dilaudid] AdvReac Verified 11/06/19 21:56 morphine AdvReac Verified 11/06/19 21:56 Penicillins AdvReac Verified 11/06/19 21:56 prochlorperazine AdvReac Verified 11/06/19 21:56 [From Compazine] Sulfa (Sulfonamide AdvReac Verified 11/06/19 21:56 Antibiotics) Review of Systems Review of Systems ROS Unobtainable: All systems reviewed & are unremarkable except as noted in HPI and below Patient History Medical History Neuroendocrine cancer (Acute) Social History Smoking Status: Never smoker Smoking Status: Never smoker alcohol intake frequency: 0-2 drinks per day Substance Use Type: does not use Exam Narrative Exam Narrative: GEN: Obese, well-appearing, alert and oriented x 3, patient appears to be in mild distress. HEENT: Atraumatic, pupils are equal round reactive to light, extraocular movements are intact, nares are clear, TMs are clear with no fluid, there is no conjunctival pallor. Throat is clear without any exudates, erythema, tonsillar enlargement or uvular deviation HEART: Regular rate and rhythm without murmur, clicks, rubs. LUNGS:Lungs clear to auscultation, no wheezes, rales, crackles, chest moves symmetrically, no tachypnea or accessory muscle use. ABD:bowel sounds normal, soft, positive for right upper quadrant tenderness, no guarding, rebound, rigidity, no masses noted, no hepatosplenomegaly :Right CVA tenderness, No left CVA tenderness. MSCL: Non-tender, no muscle atrophy, muscles strength 5/5 upper and lower extremities, full range of motion, normal gait NEURO:CN 2-12 intact, sensation normal SKIN: Rash, no petechiae. No vesicles on the abdomen or chest. Initial Vital Signs Initial Vital Signs: Vital Signs Temperature 98.6 F 11/06/19 21:56 Pulse Rate 74 11/06/19 21:56 Respiratory Rate 18 11/06/19 21:56 Blood Pressure 124/56 L 11/06/19 21:56 Pulse Oximetry 97 11/06/19 21:56 Course Orders Ordered: ED Orders 11/06/19 23:12 CT abdomen pelvis w con Stat CT angio chest PE protocol Stat 11/07/19 00:15 Complete Blood Count AUTO DIFF Stat Comprehensive Metabolic Panel Stat Lipase Stat 11/07/19 01:20 Urine Culture Stat Urine Microscopic Stat Discontinued Medications Ketorolac Tromethamine (Toradol) 30 mg IV NOW ONE Stop: 11/07/19 01:48 Last Admin: 11/07/19 01:52 Dose: 30 mg Documented by: JIMMIE Ondansetron HCl (Zofran Odt) 4 mg SL NOW ONE Stop: 11/06/19 23:13 Last Admin: 11/06/19 23:27 Dose: 4 mg Documented by: KAREN Oxycodone HCl (Percolone) 5 mg PO NOW ONE Stop: 11/06/19 23:13 Last Admin: 11/06/19 23:27 Dose: 5 mg Documented by: KAREN Vital Signs Vital signs: Vital Signs - 8 hr 11/06/19 23:00 11/07/19 01:00 11/07/19 02:00 Pulse Rate 74 72 87 Respiratory Rate 19 15 17 Blood Pressure Blood Pressure [Right Arm] 96/48 L 116/65 104/61 Pulse Oximetry 98 94 95 11/07/19 02:29 Pulse Rate 70 Respiratory Rate 15 Blood Pressure 104/61 Blood Pressure [Right Arm] Pulse Oximetry 99 MDM - Abdominal Pain Lab Data Attestation: I reviewed the patient's lab results. Result diagrams: 11/06/19 11:20 11/06/19 11:20 Labs: Lab Results 11/06/19 11/06/19 11/07/19 Range/Units 11:20 11:20 01:20 WBC 7.4 (4.5-11.0) X10^3/uL RBC 3.76 L (4.0-5.2) X10^6/uL Hgb 11.8 L (12.0-16.0) g/dL Hct 34.9 L (36-46) % MCV 92.6 (80-100) fL MCH 31.5 (26-34) PG MCHC 34.0 (30-36) % RDW 13.8 (11.6-14.8) % Plt Count 320 (150-400) X10^3/uL Neut % (Auto) 69.5 (50-75) % Lymph % (Auto) 18.4 L (25-40) % [place] % (Auto) 7.0 (3-14) % Eos % (Auto) 4.1 H (2-4) % Baso % (Auto) 1.0 (0-2) % Neut # (Auto) 5100 (5306-2248) /uL Lymph # (Auto) 1400 (3310-7168) /uL [place] # (Auto) 500 (0-900) /uL Eos # (Auto) 300 (0-450) /uL Baso # (Auto) 100 (0-100) /uL Sodium 137 (137-145) mmol/L Potassium 3.6 (3.4-5.1) mmol/L Chloride 99 (98-107) mmol/L Carbon Dioxide 31 (22-32) mmol/L BUN 16 (7-17) mg/dL Creatinine 0.70 (0.52-1.04) mg/dL Estimated GFR > 60.0 (>60) mL/min BUN/Creatinine Ratio 22.9 H (6-22) Glucose 242 H (80-110) mg/dL Calcium 9.1 (8.4-10.2) mg/dL Total Bilirubin 0.4 (0.2-1.3) mg/dL AST 42 H (14-36) IU/L ALT 23 (<35) IU/L Alkaline Phosphatase 257 H (38-126) U/L Total Protein 7.2 (6.3-8.2) g/dL Albumin 3.6 (3.5-5.0) g/dL Globulin 3.6 (1.7-4.1) g/dL Albumin/Globulin Ratio 1.0 (1.0-2.8) Lipase 297 (23-300) U/L Urine RBC None seen (0-5/HPF) Urine WBC 0-1/hpf (0-5/HPF) Ur Squamous Epith Cells 0-1 /hpf (0-5/HPF) Urine Bacteria Occasional (0-1) (None) Ur Culture Indicated? Specimen cultured Micro UA Comment . Point of care testing: Urine Dip Bedside Urine Glucose 1000 mg/dl Bedside Urine Bilirubin - Negative Bedside Urine Ketone - Negative Urine Specific [place] 1.025 Bedside Urine Occult Blood - Negative Bedside Urine pH 6.0 Bedside Urine Protein +/- 15 Bedside Urine Urobilinogen - Negative Bedside Urine Nitrite - Negative Bedside Urine Leukocytes +/- [address] scan - chest: Radiologist's impression: For PE, aneurysm or dissection. Hepatic metastases. Cholelithiasis. Chronic pancreatitis CT scan - abdomen: Radiologist's impression: Progressive metastatic disease within the liver. Described as mildly progressive. Cholelithiasis without cholecystitis. Chronic pancreatitis with atrophic pancreas the several benign calcification an ex vacuo affect about the pancreatic duct due to volume loss. Left colonic diverticulosis. Mild constipation. Other chronic stable findings as above. MDM Narrative Medical decision making narrative: Patient comes in with right upper abdominal pain and she is tender on palpation. She does not have a white count, she has been afebrile. Patient had a D-dimer ordered as an outpatient that was 327 and she with age adjusted her D-dimer would be 305 for her cut off. Patient's electrolytes and renal function are normal. Glucose was 330. Patient has an alk-phos of 255 which is in alignment with patient's priors. Her AST ALT are normal range with a normal bilirubin, patient's lipase and amylase are normal. Discussed with patient I suspect her pain is secondary to her metastatic disease and or her cholelithiasis. I do not see any acute findings today that convince me she has cholecystitis and we discussed strict return precautions. Patient was sleeping when I returned to the room but still has some pain. She would like to try something non-narcotic for pain. Given Toradol in ED. She has oxycodone at home and states she has enough available. Discharge Plan Departure Patient Disposition: Home Clinical Impression: Abdominal pain, Cholelithiasis, Liver metastasis Discharge Date/Time: 11/07/19 02:30 Instructions: DI for Abdominal Pain-Adult Activity Restrictions/Additional Instructions: Follow up with your physician in the next 2-3 days for recheck. Call for an appointment on Friday morning. You may take your home pain medication as prescribed. Your imaging today does show gallstones it also shows mild progression of metastatic lesions within her liver from past CT scans. Either of these could potentially be the cause of her pain today. Your labs show a slightly elevated alkaline phosphatase but this is consistent with your prior lab work and is not a new elevation. Return to the ER for fevers greater 100.4 F, rapidly worsening pain, persistent vomiting, black or bloody stools, passing out, shortness of breath, chest pain or pressure or other new or concerning symptoms. Prescriptions: No Action promethazine 25 mg tablet 25 mg PO Q4-6H PRN (Reason: nausea and vomiting) Qty: 20 RF: 0 duloxetine 30 mg capsule,delayed release(DR/EC) 30 mg PO BID RF: 0 nystatin-triamcinolone 100,000-0.1 unit/g-% cream 1 applic TOPICAL BID RF: 0 gabapentin 100 mg capsule 100 mg PO DIRECTED RF: 0 lorazepam 1 mg tablet 1 mg PO BEDTIME PRN (Reason: Anxiety) RF: 0 letrozole 2.5 mg tablet 2.5 mg PO DAILY RF: 0 Novolog Flexpen U-100 Insulin 100 unit/mL (3 mL) insulin pen 0 unit SUBCUT DIRECTED RF: 0 cholecalciferol (vitamin D3) 50,000 unit capsule 50,000 unit PO QWEEK RF: 0 oxycodone 10 mg tablet 5 - 10 mg PO Q4-6H PRN (Reason: pain) RF: 0 Tresiba FlexTouch U-200 200 unit/mL (3 mL) insulin pen 90 unit SUBCUT DAILY RF: 0 Narcan 4 mg/actuation spray,non-aerosol 1 spray INTRANASAL PRN PRN (Reason: Opioid Overdose) RF: 0 Referrals: Mary Head MD [Primary Care Provider] -
--- NOTE | 2019-11-06 23:12 | DI.CT.S_ITS ---
PROCEDURE: CT ANGIO CHEST PE PROTOCOL INDICATIONS: RUQ pain, history of known cancer, TECHNIQUE: After the administration of intravenous contrast, 2 mm thick sections acquired from the pulmonary apices to the posterior costophrenic angles. 3-dimensional maximum intensity projection (MIP) coronal and sagittal reformats were then acquired through the thorax. For radiation dose reduction, the following was used: automated exposure control, adjustment of mA and/or kV according to patient size. COMPARISON: [facility], CT, CT ABDOMEN PELVIS W CON, 11/06/2019, 23:42. [facility], CT, CT ABDOMEN PELVIS W CON, 08/30/2019, 0:30. [facility], CT, CT CHEST W CON, 09/15/2019, 14:10. FINDINGS: Image quality: Excellent. Pulmonary arteries: Pulmonary arteries are normal in size, and demonstrate no intraluminal filling defects to suggest central pulmonary embolism. Lungs and pleura: There is mild dependent atelectasis. No acute consolidation or suspicious mass lesions. No pleural effusions or pneumothorax. Central and peripheral airways are patent. Mediastinum: Heart size is normal, without pericardial effusion. No mediastinal or hilar adenopathy. Thoracic aorta is normal in caliber and enhancement. Esophagus is normal in caliber, without hiatal hernia. Bones and chest wall: No suspicious bony lesions. Ribs and thoracic spine appear intact throughout. Thyroid gland demonstrates no discrete nodules. No axillary or supraclavicular adenopathy. Within the lower outer quadrant of the right breast, and there is an asymmetric opacity with associated calcifications suggestive of scarring. Abdomen: Visualized upper abdomen redemonstrates a nodular hepatic contour with multiple hyperattenuating mass lesions redemonstrated compatible with metastatic disease. These appear slightly increased in size compared to the prior study. A novelties sales representative lesion in the right hepatic lobe series 4 image 147 measures up to 3.5 x 2.1 cm compared to approximately 2.5 x 1.5 cm previously. Multiple calcified gallstones are noted within the visualized gallbladder without wall thickening or pericholecystic fat stranding. IMPRESSION: 1. No evidence of pulmonary embolism. 2. Multiple hepatic mass lesions redemonstrated compatible with metastatic disease. These appear slightly increased in size compared to the prior study. Nodularity of hepatic contour is again noted suggestive of cirrhosis. Concordant with preliminary interpretation. Dictated by: Mike Florentino M.D. on 11/07/2019 at 7:33 Approved by: Mike Florentino M.D. on 11/07/2019 at 7:45
--- NOTE | 2019-11-06 23:12 | DI.CT.S_ITS ---
PROCEDURE: CT ABDOMEN PELVIS W CON INDICATIONS: RUQ pain, known cancer TECHNIQUE: After the administration of intravenous contrast, 5 mm thick sections acquired from the diaphragm to the symphysis. 5 mm coronal and sagittal reformats were acquired. For radiation dose reduction, the following was used: automated exposure control, adjustment of mA and/or kV according to patient size. COMPARISON: [facility], CT, CT ABDOMEN PELVIS W CON, 08/30/2019, 0:30. FINDINGS: Image quality: Excellent. ABDOMEN: Lung bases: There is mild dependent atelectasis. Heart size is normal. Solid organs: Innumerable hypoattenuating mass lesions are redemonstrated throughout the liver. These appear increased in size and number compared to the prior study. A insurance service representative mass in segment 6 of the right hepatic lobe on series 2 image 30 measures approximately 2.5 x 2.2 cm compared to approximately 1.4 x 1.5 cm previously. The liver is slightly nodular in contour. Multiple calcified gallstones are redemonstrated in the gallbladder without distention, wall thickening, or pericholecystic fluid. Biliary system is non-dilated. The pancreas is mildly atrophic in size with multiple parenchymal calcifications consistent with sequelae of chronic pancreatitis. There is mild pancreatic duct dilatation measuring up to approximately 6 mm. The findings are similar to the prior study. No peripancreatic fat stranding or fluid collections to suggest acute pancreatitis on CT. The spleen is normal in size. No adrenal nodules. Kidneys demonstrate no hydronephrosis. Peritoneum and bowel: Small bowel loops demonstrate normal wall thickness and caliber. The appendix is normal in appearance. There is colonic diverticulosis without acute diverticulitis. There is mild segmental wall thickening in the sigmoid colon and rectum which may reflect a mild colitis. No free fluid or air. Nodes and vessels: There is an enlarged left retroperitoneal lymph node at the level of the left renal hilum redemonstrated, measuring approximately 1.5 cm in short axis, increased from 1.2 cm previously. Aorta and inferior vena cava are normal in size. Miscellaneous: There is a fat-containing ventral umbilical hernia. PELVIS: Genitourinary: Bladder wall thickness is normal. Miscellaneous: No inguinal hernias or adenopathy. Bones: No suspicious bony lesions. No vertebral body compression fractures. IMPRESSION: 1. Increase in size and number of innumerable hepatic mass lesions consistent with progression of metastatic disease. 2. Cholelithiasis without acute cholecystitis. 3. Sequela of chronic pancreatitis redemonstrated with no evidence of acute pancreatitis on CT. 4. Colonic diverticulosis without acute diverticulitis. 5. Mild segmental wall thickening in the sigmoid colon and rectum may reflect a mild colitis or artifact from incomplete distention. Concordant with preliminary interpretation. Dictated by: Mike Florentino M.D. on 11/07/2019 at 7:48 Approved by: Mike Florentino M.D. on 11/07/2019 at 7:57
[2019-11-06] MEDS: OXYCODONE IR 5 MG TABLET PO (23:27)
[2019-11-06] MEDS: ONDANSETRON 4 MG ODT SL (23:27)
[2019-11-07 00:26] LABS: Add Manual Diff / Slide Review NO; Basophils Absolute Auto 100 /uL (0-100); Eosinophils Absolute Auto 300 /uL (0-450); Eosinophils Percent Auto 4.1 % (2-4); Hematocrit 34.9 % (36-46); Hemoglobin 11.8 g/dL (12.0-16.0); Lymphocytes Absolute Auto 1400 /uL (1100-4500); Lymphocytes Percent Auto 18.4 % (25-40); Mean Corpuscular Hemoglobin 31.5 PG (26-34); Mean Corpuscular Volume 92.6 fL (80-100); Monocytes Absolute Auto 500 /uL (0-900); Neutrophils Absolute Auto 5100 /uL (1500-7000); Neutrophils Percent Auto 69.5 % (50-75); Platelet Count 320 X10^3/uL (150-400); Red Blood Cell Count 3.76 X10^6/uL (4.0-5.2); Red Cell Distribution Width 13.8 % (11.6-14.8); White Blood Cell Count 7.4 X10^3/uL (4.5-11.0)
[2019-11-07 00:27] LABS: Alanine Aminotransferase 23 IU/L (<35); Albumin 3.6 g/dL (3.5-5.0); Alkaline Phosphatase 257 U/L (38-126); Aspartate Aminotransferase 42 IU/L (14-36); BUN Creatinine Ratio 22.9 (6-22); Bilirubin Total 0.4 mg/dL (0.2-1.3); Blood Urea Nitrogen 16 mg/dL (7-17); Calcium 9.1 mg/dL (8.4-10.2); Carbon Dioxide 31 mmol/L (22-32); Chloride 99 mmol/L (98-107); Estimated Glomerular Filt Rate > 60.0 mL/min (>60); Globulin 3.6 g/dL (1.7-4.1); Glucose 242 mg/dL (80-110); HEMOLYSIS 17 (0-50); Lipase 297 U/L (23-300); Potassium 3.6 mmol/L (3.4-5.1); Sodium 137 mmol/L (137-145); Total Protein 7.2 g/dL (6.3-8.2)
[2019-11-07 01:00] VITALS: BP 116/65; PULSE 72; RESP 15; O2SAT 94
[2019-11-07 01:33] LABS: Bacteria Urine Occasional (0-1); RBC Urine None Seen (0-5/HPF); Squamous Epithelial Cell Urine 0-1 /HPF (0-5/HPF); WBC Urine 0-1/HPF (0-5/HPF)
[2019-11-07 01:34] LABS: Culture Indicated Urine Specimen Cultured
[2019-11-07] MEDS: KETOROLAC 60 MG/2 ML VIAL 30 MG IV (01:52)
[2019-11-07 02:00] VITALS: BP 104/61; PULSE 87; RESP 17; O2SAT 95
[2019-11-07 02:29] VITALS: BP 104/61; PULSE 70; RESP 15; O2SAT 99
== END 2019-11-07 02:30 | disposition home or self-care (01) ==
PROVIDERS: Emergency Provider Emergency Medicine; PCP Internal Medicine
DX: R10.11 Right upper quadrant pain (principal); K80.20 Calculus of gallbladder without cholecystitis without obstruction; C78.7 Secondary malignant neoplasm of liver and intrahepatic bile duct; R10.13 Epigastric pain
CPT/HCPCS: 36415; 71275; 74177; 80053; 81001; 81003; 81015; 82150; 83690; 85025; 85379; 87086; 96374; 99284; J1885; Q9967

== ENCOUNTER → 2019-11-30 18:57 | Outpatient (ROUT) | payer MEDICARE, SELFPAY | PROVIDERS: PCP Internal Medicine; Visit Provider Internal Medicine | DX: R32 Unspecified urinary incontinence (principal) | CPT/HCPCS: 87086 ==

== ENCOUNTER → 2019-12-28 18:45 | Outpatient (ROUT) | payer MEDICARE, SELFPAY ==
[2019-12-28 19:03] LABS: Alanine Aminotransferase 38 IU/L (<35); Albumin 3.4 g/dL (3.5-5.0); Albumin Globulin Ratio 0.9 (1.0-2.8); Alkaline Phosphatase 331 U/L (38-126); Aspartate Aminotransferase 51 IU/L (14-36); BUN Creatinine Ratio 15.7 (6-22); Bilirubin Total 0.3 mg/dL (0.2-1.3); Blood Urea Nitrogen 11 mg/dL (7-17); Calcium 9.3 mg/dL (8.4-10.2); Carbon Dioxide 29 mmol/L (22-32); Chloride 100 mmol/L (98-107); Estimated Glomerular Filt Rate > 60.0 mL/min (>60); Globulin 3.6 g/dL (1.7-4.1); Glucose 417 mg/dL (80-110); HEMOLYSIS < 15 (0-50); Sodium 138 mmol/L (137-145)
[2019-12-28 19:08] LABS: Hematocrit 38.6 % (36-46); Mean Corpuscular HGB Conc 33.8 % (30-36); Mean Corpuscular Hemoglobin 31.2 PG (26-34); Mean Corpuscular Volume 92.5 fL (80-100); Platelet Count 282 X10^3/uL (150-400); Red Blood Cell Count 4.18 X10^6/uL (4.0-5.2); Red Cell Distribution Width 14.9 % (11.6-14.8); White Blood Cell Count 6.5 X10^3/uL (4.5-11.0)
[2019-12-28 19:31] LABS: Neutrophils Absolute Manual 5785 /uL (3000-5900); RBC Morphology Normal Morphology; Total Cells Counted 100
[2019-12-28 19:33] LABS: TSH w/ Reflex to FT4 0.86 uIU/mL (0.47-4.68)
[2019-12-28 19:37] LABS: WBC Morphology Comment 4+ Hyposegmented
== END ==
PROVIDERS: PCP Internal Medicine; Visit Provider Internal Medicine
DX: C7A.8 Other malignant neuroendocrine tumors (principal)
CPT/HCPCS: 80053; 84443; 85025

== ENCOUNTER → 2020-01-24 13:09 | Outpatient (CLI) | payer MEDICARE, SELFPAY ==
--- NOTE | 2020-01-24 | DI.RAD.S_ITS ---
PROCEDURE: XR CHEST 2V INDICATIONS: Other nonspecific abnormal finding of lung field TECHNIQUE: 2 views of the chest were acquired. COMPARISON: [facility], , XR CHEST 2V, 09/15/2019, 17:10. FINDINGS: Surgical changes and devices: None. Lungs and pleura: Lungs are clear. No pleural effusions or pneumothorax. Mediastinum: Mediastinal contours are normal. Heart size is normal. Bones and chest wall: No suspicious bony abnormalities. Soft tissues appear unremarkable. IMPRESSION: No acute cardiopulmonary pathology. Dictated by: Uriel Adames M.D. on 01/24/2020 at 15:45 Approved by: Uriel Adames M.D. on 01/24/2020 at 15:47
== END ==
PROVIDERS: PCP Internal Medicine; Referring Provider Internal Medicine; Visit Provider Internal Medicine
DX: R91.8 Other nonspecific abnormal finding of lung field (principal); C7A.8 Other malignant neuroendocrine tumors; R09.89 Other specified symptoms and signs involving the circulatory and respiratory systems; R50.81 Fever presenting with conditions classified elsewhere
CPT/HCPCS: 71046

== ENCOUNTER → 2020-02-25 14:12 | Outpatient (CLI) | payer MEDICARE, MEDICAID, SELFPAY ==
--- NOTE | 2020-02-25 | DI.RAD.S_ITS ---
PROCEDURE: XR HAND LT MIN 3V INDICATIONS: Injury To Left Hand TECHNIQUE: 3 views of the hand(s) acquired. COMPARISON: None. FINDINGS: Bones: No fractures or dislocations. Carpal bones are normally aligned. No suspicious bony lesions. Soft tissues: No suspicious soft tissue calcifications. IMPRESSION: Trauma reportedly was at the fifth digit approximately one month ago. 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 Dictated by: Uli Oleary M.D. on 02/25/2020 at 14:45 Approved by: Uli Oleary M.D. on 02/25/2020 at 14:48
== END ==
PROVIDERS: PCP Internal Medicine; Referring Provider Internal Medicine; Visit Provider Internal Medicine
DX: S69.92XA Unspecified injury of left wrist, hand and finger(s), initial encounter (principal); M19.042 Primary osteoarthritis, left hand; X58.XXXA Exposure to other specified factors, initial encounter
CPT/HCPCS: 73130

== ENCOUNTER 2020-07-26 12:26 | Emergency (ER) | payer MEDICARE, SELFPAY ==
[2020-07-26] VITALS (15 sets, daily range): BP systolic 134–158; BP diastolic 64–75; PULSE 58–82; RESP 14–19; TEMP 36.3–36.6; O2SAT 97–100
--- NOTE | 2020-07-26 12:42 | DI.RAD.S_ITS ---
PROCEDURE: XR CHEST 1V INDICATIONS: chest pain TECHNIQUE: One view of the chest was acquired. COMPARISON: [facility], CR, XR CHEST 2V, 01/24/2020, 13:12. FINDINGS: Surgical changes and devices: Surgical clips are redemonstrated in the right chest wall. Lungs and pleura: Lungs are clear. No pleural effusions or pneumothorax. Mediastinum: Mediastinal contours appear normal. Heart size is normal. Bones and chest wall: No suspicious bony lesions. Overlying soft tissues appear unremarkable. IMPRESSION: 1. No acute cardiopulmonary disease. Dictated by: Mike Florentino M.D. on 07/26/2020 at 13:11 Approved by: Mike Florentino M.D. on 07/26/2020 at 13:11
--- NOTE | 2020-07-26 12:49 | ED_ITS ---
HPI - Chest Pain General Chief Complaint: Chest Pain Stated Complaint: Chest pain Time Seen by Provider: 07/26/20 12:44 Source: patient Mode of arrival: Ambulatory Limitations: no limitations History of Present Illness HPI narrative: Patient is a 60-year-old female with history of diabetes coronary artery disease in neuroendocrine cancer currently undergoing radiation presenting today with chest heaviness. She says she woke up this morning and was not feeling quite right she checked her sugar was 300 she gave herself 20 units of NovoLog went back to sleep she woke up her sugar was 69 she drinks some chocolate milk and try to eat something however that is when she noticed she had chest heaviness and some left arm pain and discomfort. She also has some tingling in her left hand. She occasionally feels like she is short of breath but not right now. No fever. She has had a nonproductive cough ongoing since she was diagnosed cancer not any worse. She denies any nausea or vomiting. MD complaint: chest pain Duration: constant Related Data Home Medications Medication Instructions Recorded Confirmed cholecalciferol (vitamin D3) 50,000 unit PO QWEEK 09/15/19 09/15/19 duloxetine 30 mg PO BID 09/15/19 09/15/19 gabapentin 100 mg PO DIRECTED 09/15/19 09/15/19 insulin aspart U-100 [Novolog 0 unit SUBCUT DIRECTED 09/15/19 05/10/20 Flexpen U-100 Insulin] insulin degludec [Tresiba 90 unit SUBCUT DAILY 09/15/19 05/10/20 FlexTouch U-200] naloxone [Narcan] 1 spray INTRANASAL PRN PRN 09/15/19 09/15/19 nystatin-triamcinolone 1 applic TOPICAL BID 09/15/19 09/15/19 oxycodone 5 - 10 mg PO Q4-6H PRN 09/15/19 09/15/19 letrozole 2.5 mg tablet 5 mg PO DAILY tab 05/10/20 05/10/20 lorazepam 1 mg tablet 5 mg PO BEDTIME PRN tab 05/10/20 05/10/20 Previous Rx's Medication Instructions Recorded promethazine 25 mg PO Q4-6H PRN #20 tab 08/30/19 Allergies Allergy/AdvReac Type Severity Reaction Status Date / Time hydromorphone [From Dilaudid] AdvReac Verified 07/26/20 15:43 morphine AdvReac Verified 07/26/20 15:43 Penicillins AdvReac Verified 07/26/20 15:43 prochlorperazine AdvReac Verified 07/26/20 15:43 [From Compazine] Sulfa (Sulfonamide AdvReac Verified 07/26/20 15:43 Antibiotics) Review of Systems Review of Systems Narrative: GENERAL: + weakness Denies chills, fatigue, malaise, fever, sweats, travel HEENT: Denies sinus pain, ear pain, sore throat, difficulty swallowing, neck pain RESPIRATORY: Denies dyspnea, cough, wheezing, hemoptysis, sputum. CARDIOVASCULAR: See HPI GASTROINTESTINAL: Denies nausea, vomiting, abdominal pain, diarrhea, constipation, melena. : Denies dysuria, frequency, incontinence, hematuria, urinary retention, flank pain. MUSCULOSKELETAL: Denies weakness, joint pain, or bony pain SKIN: No rash, no erythema, no pruritus NEUROLOGIC: Denies weakness, dizziness, headache, numbness, change in speech, confusion PSYCHIATRIC: No concerning psychosocial issues. 12 point review of systems is negative except for those stated above and HPI Patient History Medical History Neuroendocrine cancer (Acute) Family History Family/Other Hypertension Heart disease Father Loud snoring Sleep apnea Restless leg Heart disease Anxiety Dementia Alcohol abuse Mother Restless leg Obesity Depression Anxiety Dementia Family/Other Depression Anxiety Alcohol abuse Substance abuse Social History Smoking Status: Never smoker Smoking Status: Never smoker alcohol intake frequency: 0-2 drinks per day Substance Use Type: does not use Exam Initial Vital Signs Initial Vital Signs: Vital Signs Temperature 97.3 F L 07/26/20 12:30 Pulse Rate 65 07/26/20 12:30 Respiratory Rate 16 07/26/20 12:30 Blood Pressure 134/64 07/26/20 12:30 Pulse Oximetry 100 07/26/20 12:30 GENERAL: Well-appearing, well-nourished and in no acute distress. HEENT: Head atraumatic,EOMI, pupils reactive, face symmetric, moist mucous membranes CARDIOVASCULAR: Regular rate and rhythm without murmurs, rubs or gallops. RESPIRATORY: Breath sounds equal bilaterally, no wheezes rales or rhonchi. ABDOMEN: Soft, nontender. Normoactive bowel sounds all 4 quadrants. No guarding or rebound. EXTREMITIES: Normal range of motion, no clubbing or edema. Neurovascularly intact NEUROLOGICAL: Alert and oriented x4.Normal gait and speech. Cranial nerves II through XII grossly intact. Industrial Ecologist strength equal bilaterally, lower extremity strength equal SKIN: Warm, dry, no laceration, no petechiae, no rashes or lesions. Course Orders Ordered: ED Orders 07/26/20 12:37 Complete Blood Count AUTO DIFF Stat Comprehensive Metabolic Panel Stat Lipase Stat Partial Thromboplastin Time Stat Prothrombin Time INR Stat Troponin & CK Cardiac Panel Stat 07/26/20 12:42 XR chest 1V Stat EKG-12 Lead Stat 07/26/20 13:25 CT angio chest PE protocol Stat 07/26/20 14:09 Urine Culture Stat Urine Microscopic Stat 07/26/20 15:30 Troponin I Stat 07/26/20 16:08 EKG-12 Lead Routine Discontinued Medications Acetaminophen (Tylenol) 975 mg PO NOW ONE Stop: 07/26/20 14:22 Last Admin: 07/26/20 15:21 Dose: 975 mg Documented by: RSTONE Nitroglycerin (Nitrostat) 0.4 mg SL NOW ONE Stop: 07/26/20 13:18 Last Admin: 07/26/20 13:43 Dose: 0.4 mg Documented by: BTONER Vital Signs Vital signs: Vital Signs - 8 hr 07/26/20 12:30 07/26/20 12:49 07/26/20 13:37 Temperature 97.3 F L 97.8 F Pulse Rate 65 64 Respiratory Rate 16 14 Blood Pressure 134/64 Pulse Oximetry 100 100 07/26/20 13:38 07/26/20 13:43 07/26/20 13:45 Temperature Pulse Rate 65 64 64 Respiratory Rate 19 19 Blood Pressure 155/72 H 145/72 H Pulse Oximetry 100 99 07/26/20 13:49 07/26/20 13:52 07/26/20 14:00 Temperature Pulse Rate 82 74 61 Respiratory Rate 19 19 17 Blood Pressure 137/64 145/67 H 145/68 H Pulse Oximetry 99 97 97 07/26/20 14:30 07/26/20 14:31 07/26/20 15:00 Temperature Pulse Rate 58 L 61 62 Respiratory Rate 14 17 15 Blood Pressure 140/71 Pulse Oximetry 98 98 98 07/26/20 15:30 07/26/20 15:31 07/26/20 16:00 Temperature Pulse Rate 60 62 60 Respiratory Rate 15 16 15 Blood Pressure 158/69 H 138/75 Pulse Oximetry 100 100 98 MDM - Chest Pain Lab Data Attestation: I reviewed the patient's lab results. Result diagrams: 07/26/20 12:37 07/26/20 12:37 Labs: Lab Results 07/26/20 07/26/20 07/26/20 Range/Units 12:37 12:37 12:37 WBC 7.0 (4.5-11.0) X10^3/uL RBC 3.62 L (4.0-5.2) X10^6/uL Hgb 11.9 L (12.0-16.0) g/dL Hct 35.1 L (36-46) % MCV 97.2 (80-100) fL MCH 32.9 (26-34) PG MCHC 33.8 (30-36) % RDW 15.2 H (11.6-14.8) % Plt Count 159 (150-400) X10^3/uL Neut % (Auto) 85.3 H (50-75) % Lymph % (Auto) 5.9 L (25-40) % Marin % (Auto) 7.4 (3-14) % Eos % (Auto) 1.2 L (2-4) % Baso % (Auto) 0.2 (0-2) % Neut # (Auto) 5900 (3629-1146) /uL Lymph # (Auto) 400 L (1818-9636) /uL Marin # (Auto) 500 (0-900) /uL Eos # (Auto) 100 (0-450) /uL Baso # (Auto) 0 (0-100) /uL PT 13.8 H (10.1-12.7) SECONDS INR 1.2 (0.9-1.3) APTT 34 (26.4-36.2) SECONDS Sodium 140 (137-145) mmol/L Potassium 3.6 (3.4-5.1) mmol/L Chloride 105 (98-107) mmol/L Carbon Dioxide 30 (22-32) mmol/L BUN 7 (7-17) mg/dL Creatinine 0.62 (0.52-1.04) mg/dL Estimated GFR > 60.0 (>60) mL/min BUN/Creatinine Ratio 11.3 (6-22) Glucose 136 H (80-110) mg/dL Calcium 9.1 (8.4-10.2) mg/dL Total Bilirubin 0.5 (0.2-1.3) mg/dL AST 64 H (14-36) IU/L ALT 45 H (<35) IU/L Alkaline Phosphatase 509 H (38-126) U/L Total Creatine Kinase 51 (30-135) U/L CK-MB (CK-2) TNP CK-MB (CK-2) Rel Index TNP Troponin I < 0.012 (0.01-0.034) ng/mL Total Protein 7.5 (6.3-8.2) g/dL Albumin 3.6 (3.5-5.0) g/dL Globulin 3.9 (1.7-4.1) g/dL Albumin/Globulin Ratio 0.9 L (1.0-2.8) Lipase 23 (23-300) U/L Urine RBC (0-5/HPF) Urine WBC (0-5/HPF) Ur Squamous Epith Cells (0-5/HPF) Calcium Oxalate Crystal Urine Bacteria (None) Ur Culture Indicated? COVID-19 PCR (Negative) 07/26/20 07/26/20 07/26/20 Range/Units 14:09 15:30 15:44 WBC (4.5-11.0) X10^3/uL RBC (4.0-5.2) X10^6/uL Hgb (12.0-16.0) g/dL Hct (36-46) % MCV (80-100) fL MCH (26-34) PG MCHC (30-36) % RDW (11.6-14.8) % Plt Count (150-400) X10^3/uL Neut % (Auto) (50-75) % Lymph % (Auto) (25-40) % Marin % (Auto) (3-14) % Eos % (Auto) (2-4) % Baso % (Auto) (0-2) % Neut # (Auto) (2262-4799) /uL Lymph # (Auto) (6873-9213) /uL Marin # (Auto) (0-900) /uL Eos # (Auto) (0-450) /uL Baso # (Auto) (0-100) /uL PT (10.1-12.7) SECONDS INR (0.9-1.3) APTT (26.4-36.2) SECONDS Sodium (137-145) mmol/L Potassium (3.4-5.1) mmol/L Chloride (98-107) mmol/L Carbon Dioxide (22-32) mmol/L BUN (7-17) mg/dL Creatinine (0.52-1.04) mg/dL Estimated GFR (>60) mL/min BUN/Creatinine Ratio (6-22) Glucose (80-110) mg/dL Calcium (8.4-10.2) mg/dL Total Bilirubin (0.2-1.3) mg/dL AST (14-36) IU/L ALT (<35) IU/L Alkaline Phosphatase (38-126) U/L Total Creatine Kinase (30-135) U/L CK-MB (CK-2) CK-MB (CK-2) Rel Index Troponin I < 0.012 (0.01-0.034) ng/mL Total Protein (6.3-8.2) g/dL Albumin (3.5-5.0) g/dL Globulin (1.7-4.1) g/dL Albumin/Globulin Ratio (1.0-2.8) Lipase (23-300) U/L Urine RBC None seen (0-5/HPF) Urine WBC 5-10/hpf H (0-5/HPF) Ur Squamous Epith Cells 0-1 /hpf (0-5/HPF) Calcium Oxalate Crystal Few H Urine Bacteria Few (2-10) H (None) Ur Culture Indicated? Specimen cultured COVID-19 PCR Negative (Negative) Point of Care Testing Glucose POC 141 Urine Dip Bedside Urine Glucose Negative Bedside Urine Bilirubin - Negative Bedside Urine Ketone - Negative Urine Specific [place] 1.015 Bedside Urine Occult Blood - Negative Bedside Urine pH 6.0 Bedside Urine Protein +/- 15 Bedside Urine Urobilinogen - Negative Bedside Urine Nitrite - Negative Bedside Urine Leukocytes +/- 15 Esterase Imaging Data Chest x-ray: Radiologist's Impression: PROCEDURE: XR CHEST 1V INDICATIONS: chest pain TECHNIQUE: One view of the chest was acquired. COMPARISON: [facility], CR, XR CHEST 2V, 01/24/2020, 13:12. FINDINGS: Surgical changes and devices: Surgical clips are redemonstrated in the right chest wall. Lungs and pleura: Lungs are clear. No pleural effusions or pneumothorax. Mediastinum: Mediastinal contours appear normal. Heart size is normal. Bones and chest wall: No suspicious bony lesions. Overlying soft tissues appear unremarkable. IMPRESSION: 1. No acute cardiopulmonary disease. Dictated by: Mike Florentino M.D. on 07/26/2020 at 13:11 Approved by: Mike Florentino M.D. on 07/26/2020 at 13:11 CT scan - chest: Radiologist's Impression: PROCEDURE: CT ANGIO CHEST PE PROTOCOL INDICATIONS: chest pain, sob, with cancer TECHNIQUE: After the administration of intravenous contrast, 2 mm thick sections acquired from the pulmonary apices to the posterior costophrenic angles. 3-dimensional maximum intensity projection (MIP) coronal and sagittal reformats were then acquired through the thorax. For radiation dose reduction, the following was used: automated exposure control, adjustment of mA and/or kV according to patient size. COMPARISON: [facility], CT, CT ANGIO CHEST PE PROTOCOL, 11/06/2019, 23:42. FINDINGS: Image quality: Excellent. Pulmonary arteries: Pulmonary arteries are normal in size, and demonstrate no intraluminal filling defects to suggest central pulmonary embolism. Lungs and pleura: Dependent atelectasis are seen in posterior aspect of bilateral lower lung garcia. No focal infiltrate. Tiny 2 millimeter solid appearing nodule is seen in posterior lateral aspect of right upper lobe near apex not significantly changed from prior study and is consistent with a benign process. No pleural effusions or pneumothorax. Central and peripheral airways are patent. Mediastinum: Heart size is normal, without pericardial effusion. No mediastinal or hilar adenopathy. Mild atherosclerotic disease is seen. Thoracic aorta is normal in caliber and enhancement. Esophagus is normal in caliber, without hiatal hernia. Bones and chest wall: No suspicious bony lesions. Ribs and thoracic spine appear intact throughout. Thyroid gland is within normal limits. No axillary or supraclavicular adenopathy. Abdomen: Patient's known metastatic lesions in right hepatic lobe now has a more confluent appearance suggestive of progression of disease. IMPRESSION: 1. No evidence of pulmonary emboli. 2. Bibasilar dependent atelectasis. No focal infiltrate, pleural effusion or pneumothorax. Tiny benign-appearing 2 mm right apical nodule. 3. Interval increased in size of patient's known hypodense lesions in liver parenchyma with more confluent appearance on the current study suggestive of progression of liver metastasis. Dictated by: Uriel Adames M.D. on 07/26/2020 at 13:39 Approved by: Uriel Adames M.D. on 07/26/2020 at 13:55 ECG Data Attestation: I personally reviewed and interpreted this ECG as follows: Prior ECG tracings: available for review Interpretation: EKG 1. Sinus rhythm rate 63 p.r. interval 150 QRS 90 QTC 435 similar to previous EKG slight T-wave inversion noted in lead 3 however this is improved from previous EKG in August EKG 2. MDM Narrative Medical decision making narrative: The patient has known coronary artery disease with recent non STEMI. She is given nitroglycerin which resolved her chest pain completely but does give her headache. She is having increasing shortness of breath with known cancer will rule out PE. PE study is negative. The patient receives all of her care at [facility] and would prefer to go to [facility] Dr. coyne hospitalist states that patient has known coronary artery disease with recent non STEMI should be transferred [id number] Dr. roland cardiology at [facility] request patient be admitted to the hospitalist for chest pain obvious a 40% blockage not concerning at this time Dr. presley graciously accepts patient for transfer for chest pain obvious Patient remains chest pain-free in the emergency department. Discharge Plan Departure Patient Disposition: [facility] Clinical Impression: Chest pain Discharge Date/Time: 07/26/20 16:34 Prescriptions: No Action promethazine 25 mg tablet 25 mg PO Q4-6H PRN (Reason: nausea and vomiting) Qty: 20 RF: 0 duloxetine 30 mg capsule,delayed release(DR/EC) 30 mg PO BID RF: 0 nystatin-triamcinolone 100,000-0.1 unit/g-% cream 1 applic TOPICAL BID RF: 0 gabapentin 100 mg capsule 100 mg PO DIRECTED RF: 0 Novolog Flexpen U-100 Insulin 100 unit/mL (3 mL) insulin pen 0 unit SUBCUT DIRECTED RF: 0 cholecalciferol (vitamin D3) 50,000 unit capsule 50,000 unit PO QWEEK RF: 0 oxycodone 10 mg tablet 5 - 10 mg PO Q4-6H PRN (Reason: pain) RF: 0 Tresiba FlexTouch U-200 200 unit/mL (3 mL) insulin pen 90 unit SUBCUT DAILY RF: 0 Narcan 4 mg/actuation spray,non-aerosol 1 spray INTRANASAL PRN PRN (Reason: Opioid Overdose) RF: 0 lorazepam 1 mg tablet 5 mg PO BEDTIME PRN (Reason: Anxiety) RF: 0 letrozole 2.5 mg tablet 5 mg PO DAILY RF: 0 Referrals: Mary Head MD [Primary Care Provider] -
[2020-07-26 12:51] LABS: Add Manual Diff / Slide Review NO; Basophils Absolute Auto 0 /uL (0-100); Basophils Percent Auto 0.2 % (0-2); Eosinophils Absolute Auto 100 /uL (0-450); Eosinophils Percent Auto 1.2 % (2-4); Hematocrit 35.1 % (36-46); Hemoglobin 11.9 g/dL (12.0-16.0); Lymphocytes Absolute Auto 400 /uL (1100-4500); Lymphocytes Percent Auto 5.9 % (25-40); Mean Corpuscular HGB Conc 33.8 % (30-36); Mean Corpuscular Hemoglobin 32.9 PG (26-34); Mean Corpuscular Volume 97.2 fL (80-100); Monocytes Absolute Auto 500 /uL (0-900); Monocytes Percent Auto 7.4 % (3-14); Neutrophils Absolute Auto 5900 /uL (1500-7000); Neutrophils Percent Auto 85.3 % (50-75); Platelet Count 159 X10^3/uL (150-400); Red Blood Cell Count 3.62 X10^6/uL (4.0-5.2); Red Cell Distribution Width 15.2 % (11.6-14.8)
[2020-07-26 12:55] LABS: INR 1.2 (0.9-1.3); Prothrombin Time 13.8 SECONDS (10.1-12.7)
[2020-07-26 12:58] LABS: PTT Partial Thromboplastin Tim 34 SECONDS (26.4-36.2)
[2020-07-26 12:59] LABS: Alanine Aminotransferase 45 IU/L (<35); Albumin 3.6 g/dL (3.5-5.0); Albumin Globulin Ratio 0.9 (1.0-2.8); Alkaline Phosphatase 509 U/L (38-126); Aspartate Aminotransferase 64 IU/L (14-36); BUN Creatinine Ratio 11.3 (6-22); Bilirubin Total 0.5 mg/dL (0.2-1.3); Blood Urea Nitrogen 7 mg/dL (7-17); Calcium 9.1 mg/dL (8.4-10.2); Carbon Dioxide 30 mmol/L (22-32); Chloride 105 mmol/L (98-107); Creatine Kinase 51 U/L (30-135); Estimated Glomerular Filt Rate > 60.0 mL/min (>60); Globulin 3.9 g/dL (1.7-4.1); Glucose 136 mg/dL (80-110); HEMOLYSIS < 15 (0-50); Lipase 23 U/L (23-300); Potassium 3.6 mmol/L (3.4-5.1); Sodium 140 mmol/L (137-145); Total Protein 7.5 g/dL (6.3-8.2)
[2020-07-26 13:11] LABS: Troponin I < 0.012 ng/mL (0.01-0.034)
--- NOTE | 2020-07-26 13:25 | DI.CT.S_ITS ---
PROCEDURE: CT ANGIO CHEST PE PROTOCOL INDICATIONS: chest pain, sob, with cancer TECHNIQUE: After the administration of intravenous contrast, 2 mm thick sections acquired from the pulmonary apices to the posterior costophrenic angles. 3-dimensional maximum intensity projection (MIP) coronal and sagittal reformats were then acquired through the thorax. For radiation dose reduction, the following was used: automated exposure control, adjustment of mA and/or kV according to patient size. COMPARISON: [facility], CT, CT ANGIO CHEST PE PROTOCOL, 11/06/2019, 23:42. FINDINGS: Image quality: Excellent. Pulmonary arteries: Pulmonary arteries are normal in size, and demonstrate no intraluminal filling defects to suggest central pulmonary embolism. Lungs and pleura: Dependent atelectasis are seen in posterior aspect of bilateral lower lung garcia. No focal infiltrate. Tiny 2 millimeter solid appearing nodule is seen in posterior lateral aspect of right upper lobe near apex not significantly changed from prior study and is consistent with a benign process. No pleural effusions or pneumothorax. Central and peripheral airways are patent. Mediastinum: Heart size is normal, without pericardial effusion. No mediastinal or hilar adenopathy. Mild atherosclerotic disease is seen. Thoracic aorta is normal in caliber and enhancement. Esophagus is normal in caliber, without hiatal hernia. Bones and chest wall: No suspicious bony lesions. Ribs and thoracic spine appear intact throughout. Thyroid gland is within normal limits. No axillary or supraclavicular adenopathy. Abdomen: Patient's known metastatic lesions in right hepatic lobe now has a more confluent appearance suggestive of progression of disease. IMPRESSION: 1. No evidence of pulmonary emboli. 2. Bibasilar dependent atelectasis. No focal infiltrate, pleural effusion or pneumothorax. Tiny benign-appearing 2 mm right apical nodule. 3. Interval increased in size of patient's known hypodense lesions in liver parenchyma with more confluent appearance on the current study suggestive of progression of liver metastasis. Dictated by: Uriel Adames M.D. on 07/26/2020 at 13:39 Approved by: Uriel Adames M.D. on 07/26/2020 at 13:55
[2020-07-26] MEDS: NITROGLYCERIN 0.4 MG SL TAB SL (13:43)
--- NOTE | 2020-07-26 13:59 | PC.NURSE ---
provided nitro tab, pt tolerated well.
[2020-07-26 15:14] LABS: RBC Urine None Seen (0-5/HPF)
[2020-07-26] MEDS: ACETAMINOPHEN 325 MG TABLET 975 MG PO (15:21)
[2020-07-26 15:28] LABS: WBC Urine 5-10/HPF (0-5/HPF)
[2020-07-26 15:29] LABS: Bacteria Urine Few (2-10); Calcium Oxalate Crystals Urine Few; Culture Indicated Urine Specimen Cultured; Squamous Epithelial Cell Urine 0-1 /HPF (0-5/HPF)
[2020-07-26 16:02] LABS: Troponin I < 0.012 ng/mL (0.01-0.034)
[2020-07-26 16:52] LABS: COVID19 -Nasal RAPID Negative (Negative)
== END 2020-07-26 16:34 | disposition short-term general hospital (02) ==
PROVIDERS: Emergency Provider Emergency Medicine; PCP Internal Medicine
DX: R07.9 Chest pain, unspecified (principal); C7A.1 Malignant poorly differentiated neuroendocrine tumors; I25.10 Atherosclerotic heart disease of native coronary artery without angina pectoris; E11.9 Type 2 diabetes mellitus without complications; I25.2 Old myocardial infarction
CPT/HCPCS: 36415; 71045; 71275; 80053; 81003; 81015; 82550; 82962; 83690; 84484; 85025; 85610; 85730; 87086; 87635; 93005; 99284; Q9967

== ENCOUNTER → 2020-08-31 15:45 | Outpatient (CLI) | payer MEDICARE, MEDICAID, SELFPAY ==
--- NOTE | 2020-08-31 15:50 | DI.MG.S_ITS ---
BILATERAL DIGITAL SCREENING MAMMOGRAM 3D/2D WITH CAD POST LUMPECTOMY: 08/31/2020 CLINICAL: Routine screening. Personal history of right breast cancer. Comparison is made to exams dated: 04/22/2018 mammogram, 04/17/2018 mammogram, and 05/28/2017 mammogram - [facility]. The tissue of both breasts is heterogeneously dense. This may lower the sensitivity of mammography. Current study was also evaluated with a Computer Aided Detection (CAD) system. There are benign calcifications in the right breast. There also are benign post operative findings in the right breast. No significant masses, calcifications, or other findings are seen in either breast. There has been no significant interval change. IMPRESSION: BENIGN There is no mammographic evidence of malignancy. A 1 year screening mammogram is recommended. This exam was interpreted at Station ID: [id number]. NOTE: For mammograms, a report in lay terms will be sent to the patient. Approximately 15% of breast malignancies will not be visualized mammographically. In the management of a palpable breast mass, a negative mammogram must not discourage biopsy of a clinically suspicious lesion. Electronically Signed By: Compa urrutia/monika:08/31/2020 17:22:25 letter sent: Normal Exam ACR BI-RADS Category 2: Benign Finding(s) [id number]
== END ==
PROVIDERS: PCP Internal Medicine; Referring Provider Internal Medicine Hematology & Oncology; Visit Provider Internal Medicine Hematology & Oncology
DX: Z12.31 Encounter for screening mammogram for malignant neoplasm of breast (principal); Z85.3 Personal history of malignant neoplasm of breast
CPT/HCPCS: 77063; 77067

== ENCOUNTER 2020-10-03 16:18 | Emergency (ER) | payer MEDICARE, MEDICAID, SELFPAY ==
[2020-10-03 16:24] VITALS: BP 141/63; PULSE 78; RESP 19; O2SAT 98
[2020-10-03 16:27] VITALS: BP 141/63; PULSE 78; RESP 16; TEMP 36.9; O2SAT 97; BMI 39.4
--- NOTE | 2020-10-03 16:28 | DI.RAD.S_ITS ---
PROCEDURE: XR CHEST 1V INDICATIONS: Chest pain TECHNIQUE: One view of the chest was acquired. COMPARISON: Merged With [facility], CR, XR CHEST 1V, 07/26/2020, 12:51. FINDINGS: Surgical changes and devices: None. Lungs and pleura: There is no acute airspace opacity. Calcified granuloma in right lower lung field is again seen and unchanged. No pleural effusions or pneumothorax. Mediastinum: Mediastinal contours appear normal. Heart size is normal. Bones and chest wall: No suspicious bony lesions. Overlying soft tissues appear unremarkable. IMPRESSION: No acute cardiopulmonary pathology. Dictated by: Uriel Adames M.D. on 10/03/2020 at 15:53 Approved by: Uriel Adames M.D. on 10/03/2020 at 15:55
[2020-10-03 16:30] VITALS: PULSE 70; RESP 19; O2SAT 97
[2020-10-03 16:42] LABS: Basophils Absolute Auto 100 /uL (0-100); Basophils Percent Auto 1.4 % (0-2); Eosinophils Absolute Auto 200 /uL (0-450); Eosinophils Percent Auto 3.8 % (2-4); Hematocrit 34.4 % (36-46); Hemoglobin 11.2 g/dL (12.0-16.0); Lymphocytes Absolute Auto 600 /uL (1100-4500); Lymphocytes Percent Auto 11.3 % (25-40); Mean Corpuscular HGB Conc 32.5 % (30-36); Mean Corpuscular Hemoglobin 30.1 PG (26-34); Mean Corpuscular Volume 92.6 fL (80-100); Monocytes Absolute Auto 500 /uL (0-900); Monocytes Percent Auto 8.5 % (3-14); Neutrophils Absolute Auto 4000 /uL (1500-7000); Platelet Count 99 X10^3/uL (150-400); Red Blood Cell Count 3.72 X10^6/uL (4.0-5.2); Red Cell Distribution Width 17.8 % (11.6-14.8); White Blood Cell Count 5.3 X10^3/uL (4.5-11.0)
[2020-10-03 16:44] LABS: Add Manual Diff / Slide Review SLIDE REVIEW
[2020-10-03 16:45] LABS: INR 1.2 (0.9-1.3); Prothrombin Time 13.3 SECONDS (10.1-12.7)
--- NOTE | 2020-10-03 16:45 | ED.CHESTPAIN ---
HPI - Chest Pain General Chief Complaint: Chest Pain Stated Complaint: SOB PAIN RIGHT CHEST HEADACHE Time Seen by Provider: 10/03/20 16:25 Source: patient Mode of arrival: Ambulatory Limitations: no limitations History of Present Illness HPI narrative: Patient is a 60-year-old female with known coronary artery disease here for evaluation of right-sided chest discomfort and a headache and also sharp electric-like pain in her right shoulder. She states that all of her symptoms started yesterday morning when she woke up. She states she had them all day long yesterday. Went to bit of him last night. Woke up with this morning and had them all day today. She states the pain is on the right side of her chest under her right breast. She states that it is worse when you touch the area. It is causing her to have somewhat of shortness of breath. Her headache is in the front of her head. No vision changes. No fevers. Also has electric sharp like pain in her right shoulder. This is an intermittent pain. Related Data Home Medications Medication Instructions Recorded Confirmed insulin aspart U-100 [Novolog 0 unit SUBCUT DIRECTED 09/15/19 09/18/20 Flexpen U-100 Insulin] insulin degludec [Tresiba 120 unit SUBCUT DAILY 09/15/19 09/18/20 FlexTouch U-200] naloxone [Narcan] 1 spray INTRANASAL PRN PRN 09/15/19 09/18/20 oxycodone 5 - 10 mg PO Q4-6H PRN 09/15/19 09/18/20 letrozole 2.5 mg tablet 2.5 mg PO DAILY tab 05/10/20 09/18/20 lorazepam 1 mg tablet 5 mg PO BEDTIME PRN tab 05/10/20 09/18/20 atorvastatin 40 mg PO BEDTIME 08/14/20 09/18/20 diphenoxylate-atropine [Lomotil] 1 tab TID 08/14/20 09/18/20 gabapentin 900 mg PO QID 08/14/20 09/18/20 [id number] [Creon] 1 cap PO TID 08/14/20 09/18/20 metoprolol succinate 12.5 mg PO BID 08/14/20 09/18/20 potassium citrate 20 meq PO BID 08/14/20 09/18/20 morphine 15 mg PO Q12H PRN 08/17/20 09/18/20 Allergies Allergy/AdvReac Type Severity Reaction Status Date / Time hydromorphone [From Dilaudid] AdvReac Verified 07/26/20 15:43 morphine AdvReac Verified 07/26/20 15:43 Penicillins AdvReac Verified 07/26/20 15:43 prochlorperazine AdvReac Verified 07/26/20 15:43 [From Compazine] Sulfa (Sulfonamide AdvReac Verified 07/26/20 15:43 Antibiotics) Review of Systems Constitutional Constitutional: Denies chills, Denies fever(s) and Reports headache(s) Eyes Eyes: Denies change in vision ENT Ears, Nose, Mouth, and Throat: Reports headache(s), Denies sinus pain and Denies sore throat Cardiovascular Cardiovascular: Reports chest pain, Denies rapid heart rate and Denies dyspnea Respiratory Respiratory: Denies cough and Denies dyspnea Gastrointestinal Gastrointestinal: Denies abdominal pain, Denies nausea and Denies vomiting Genitourinary Genitourinary: Denies dysuria Genitourinary: Denies dysuria Musculoskeletal Musculoskeletal: Denies arthralgias and Denies myalgias Integumentary/Breasts Skin/Breast: Denies lesions and Denies rash Neurologic Neurologic: Denies behavioral changes and Reports headache(s) Psychiatric Psychiatric: Denies behavioral changes Hematologic/Lymphatic Hematologic/Lymphatic: Denies easy bleeding and Denies easy bruising Allergic/Immunologic Allergic/Immunologic: Denies urticaria Patient History Medical History Breast cancer (Acute) Diabetes (Acute) Endometrium cancer (Acute) Neuroendocrine cancer (Acute) Neuropathy (Acute) Family History (Updated 08/14/20 @ 17:05 by Tegan Martin MD) Family/Other Heart disease Hypertension Father Loud snoring Sleep apnea Alcohol abuse Anxiety Dementia Heart disease Restless leg Mother Anxiety Dementia Depression Restless leg Obesity Breast cancer Family/Other Substance abuse Alcohol abuse Anxiety Depression Social History Smoking Status: Never smoker alcohol intake: never substance use type: does not use Smoking Status: Never smoker alcohol intake frequency: 0-2 drinks per day Substance Use Type: does not use Exam Initial Vital Signs Initial Vital Signs: Vital Signs Pulse Rate 78 10/03/20 16:24 Respiratory Rate 19 10/03/20 16:24 Blood Pressure 141/63 H 10/03/20 16:24 Pulse Oximetry 98 10/03/20 16:24 Const General: cooperative and comfortable Limitations: mental status not altered [facility] Head: normal to inspection, normocephalic and atraumatic Neck Neck: no meningeal signs Chest Chest: No crepitus and tenderness (Right-sided anterior axillary line along the mid ribs.) Resp Effort & Inspection: normal respiratory effort Auscultation: clear to auscultation bilaterally Cardio Rate: regular rate Rhythm: regular rhythm GI Inspection: non-distended Palpation: soft and No firm Back/Spine/Pelvis Cervical Spine: No cervical spinal tenderness Skin Lesions: no lesions Rashes: no rashes Neuro General: patient alert and patient awake Cognition: normal cognition Speech: speech normal Extrem General: normal to inspection and capillary refill normal Other: Has no tenderness to palpation of the right shoulder. Full range of motion right shoulder. Psych Appearance: grossly normal and well kempt Course Orders Ordered: ED Orders 10/03/20 16:22 EKG-12 Lead Stat 10/03/20 16:28 XR chest 1V Stat 10/03/20 16:29 Basic Metabolic Panel Stat Complete Blood Count AUTO DIFF Stat Hepatic (Liver) Panel Stat Lipase Stat Partial Thromboplastin Time Stat Prothrombin Time INR Stat Troponin & CK Cardiac Panel Stat Discontinued Medications Aspirin (Aspirin Chew) 324 mg PO NOW ONE Stop: 10/03/20 16:28 Last Admin: 10/03/20 16:45 Dose: Not Given Documented by: VINI Vital Signs Vital signs: Vital Signs - 8 hr 10/03/20 16:24 10/03/20 16:27 10/03/20 16:30 Temperature 98.4 F Pulse Rate 78 78 70 Respiratory Rate 19 16 19 Blood Pressure 141/63 H 141/63 H Pulse Oximetry 98 97 97 10/03/20 17:00 10/03/20 17:01 10/03/20 17:48 Temperature Pulse Rate 70 70 78 Respiratory Rate 16 Blood Pressure 107/58 L 120/70 Pulse Oximetry 97 97 99 MDM - Chest Pain Lab Data Attestation: I reviewed the patient's lab results. Result diagrams: 10/03/20 16:29 10/03/20 16:29 Labs: Lab Results 10/03/20 10/03/20 10/03/20 Range/Units 16:29 16:29 16:29 WBC 5.3 (4.5-11.0) X10^3/uL RBC 3.72 L (4.0-5.2) X10^6/uL Hgb 11.2 L (12.0-16.0) g/dL Hct 34.4 L (36-46) % MCV 92.6 (80-100) fL MCH 30.1 (26-34) PG MCHC 32.5 (30-36) % RDW 17.8 H (11.6-14.8) % Plt Count 99 L (150-400) X10^3/uL Neut % (Auto) 75.0 (50-75) % Lymph % (Auto) 11.3 L (25-40) % [place] % (Auto) 8.5 (3-14) % Eos % (Auto) 3.8 (2-4) % Baso % (Auto) 1.4 (0-2) % Neut # (Auto) 4000 (2003-8370) /uL Lymph # (Auto) 600 L (5617-9278) /uL [place] # (Auto) 500 (0-900) /uL Eos # (Auto) 200 (0-450) /uL Baso # (Auto) 100 (0-100) /uL Platelet Estimate Decreased on smear Plt Morphology Comment RBC Morphology Normal morphology PT 13.3 H (10.1-12.7) SECONDS INR 1.2 (0.9-1.3) APTT 31 D (26.4-36.2) SECONDS Sodium 135 L (137-145) mmol/L Potassium 4.0 (3.4-5.1) mmol/L Chloride 103 (98-107) mmol/L Carbon Dioxide 28 (22-32) mmol/L BUN 14 (7-17) mg/dL Creatinine 0.71 (0.52-1.04) mg/dL Estimated GFR > 60.0 (>60) mL/min BUN/Creatinine Ratio 19.7 (6-22) Glucose 320 H (80-110) mg/dL Calcium 8.7 (8.4-10.2) mg/dL Total Bilirubin (0.2-1.3) mg/dL Conjugated Bilirubin (0.0-0.3) md/dL Unconjugated Bilirubin (0.0-1.1) mg/dL AST (14-36) IU/L ALT (<35) IU/L Alkaline Phosphatase (38-126) U/L Total Creatine Kinase 40 (30-135) U/L CK-MB (CK-2) TNP CK-MB (CK-2) Rel Index TNP Troponin I < 0.012 (0.01-0.034) ng/mL Total Protein (6.3-8.2) g/dL Albumin (3.5-5.0) g/dL Globulin (1.7-4.1) g/dL Albumin/Globulin Ratio (1.0-2.8) Lipase (23-300) U/L 10/03/20 Range/Units 16:29 WBC (4.5-11.0) X10^3/uL RBC (4.0-5.2) X10^6/uL Hgb (12.0-16.0) g/dL Hct (36-46) % MCV (80-100) fL MCH (26-34) PG MCHC (30-36) % RDW (11.6-14.8) % Plt Count (150-400) X10^3/uL Neut % (Auto) (50-75) % Lymph % (Auto) (25-40) % [place] % (Auto) (3-14) % Eos % (Auto) (2-4) % Baso % (Auto) (0-2) % Neut # (Auto) (2159-8719) /uL Lymph # (Auto) (6197-1597) /uL [place] # (Auto) (0-900) /uL Eos # (Auto) (0-450) /uL Baso # (Auto) (0-100) /uL Platelet Estimate Plt Morphology Comment RBC Morphology PT (10.1-12.7) SECONDS INR (0.9-1.3) APTT (26.4-36.2) SECONDS Sodium (137-145) mmol/L Potassium (3.4-5.1) mmol/L Chloride (98-107) mmol/L Carbon Dioxide (22-32) mmol/L BUN (7-17) mg/dL Creatinine (0.52-1.04) mg/dL Estimated GFR (>60) mL/min BUN/Creatinine Ratio (6-22) Glucose (80-110) mg/dL Calcium (8.4-10.2) mg/dL Total Bilirubin 0.5 (0.2-1.3) mg/dL Conjugated Bilirubin 0.0 (0.0-0.3) md/dL Unconjugated Bilirubin 0.2 (0.0-1.1) mg/dL AST 42 H (14-36) IU/L ALT 34 (<35) IU/L Alkaline Phosphatase 376 H (38-126) U/L Total Creatine Kinase (30-135) U/L CK-MB (CK-2) CK-MB (CK-2) Rel Index Troponin I (0.01-0.034) ng/mL Total Protein 7.2 (6.3-8.2) g/dL Albumin 3.4 L (3.5-5.0) g/dL Globulin 3.8 (1.7-4.1) g/dL Albumin/Globulin Ratio 0.9 L (1.0-2.8) Lipase 67 (23-300) U/L Imaging Data Chest x-ray: Radiologist's Impression: [place] [address] Ultrasound Report Signed Patient: Danielle Boo BMR#: [id number] : 06/11/1976Acct:[id number] Age/Sex: 44 / FDate of Service: 10/03/20 Loc: ED Accession Number: [id number] Procedure: US pelvic complete Ordering Provider: Clif Park D.O. PROCEDURE: US PELVIC COMPLETE INDICATIONS: CRAMPING AND NO PERIOD FOR 3 YEARS. TECHNIQUE: Real-time scanning was performed of the pelvic organs, with image documentation. Additional endovaginal scanning was necessary due to incomplete visualization of the adnexal and endometrial structures by transabdominal scanning. COMPARISON: [facility], , US PELVIC COMPLETE, 05/18/2018, 8:18. FINDINGS: Transabdominal scanning: Limited scanning through the kidneys shows no hydronephrosis. No pathologic free abdominal or pelvic fluid. Endovaginal scanning: Uterus: Uterus is normal in size at 11.7 x 7.3 6.5 cm. The endometrium measures 12.8 mm in combined thickness. There is a mid anterior intramural focus of heterogenous echognicity measuring 13 mm x 14 mm x 13 mm compared to 13 mm x 7 mm x 16 mm. Similar focus of echogenicity in the right anterior intramural focus measruing 11 mm x 10 mm x 8 mm. Nabothian cysts are noted. Ovaries: Right ovary measuring 45 mm x 29 mm x 26 mm. Left ovary measures 75 mm x 60 mm x 45 mm. Right ovarian cyst measures 26 mm x 19 mm x 15 mm. Left ovarian cyst is noted measuring 36 x 40 x 41 mm. There is a tubular structure extending within the region of the left adnexa. IMPRESSION: 1. Bilateral ovarian cysts. 2. Tubular structure within the region of the left adnexa. [place]/pyosalpinx cannot be excluded. 3. Foci of heterogeneous echogenicity are present within the uterus suggestive of small fibroids. Dictated by: Lay Rubin M.D. on 10/03/2020 at 17:32 Approved by: Lay Rubin M.D. on 10/03/2020 at 17:50 ECG Data Attestation: I personally reviewed and interpreted this ECG as follows: Prior ECG tracings: not available for review Interpretation: Sinus rhythm Ventricular rate is 77 Normal axis Normal QRS Normal QTC No ST T wave changes MDM Narrative Medical decision making narrative: Patient has clearly reproducible right-sided chest wall pain. Her troponin was negative and has an unremarkable EKG almost 36 hours after the onset of her pain. I feel this is unlikely ACS or PE. Her chest x-ray is unremarkable. She has for a benign right shoulder exam. She has a normal neurologic exam. No fevers. Low suspicion for intracranial hemorrhage. Discussed all this with the patient. I feel we can hold on further workup. She would rather just take Tylenol and ibuprofen at home she was given return precautions. She expressed understanding and agreement. Discharge Plan Departure Patient Disposition: Home Clinical Impression: Right-sided chest wall pain, Headache Discharge Date/Time: 10/03/20 17:48 Instructions: DI for Atypical Chest Pain Activity Restrictions/Additional Instructions: I do recommend you continue all of your medications as directed. Contact her primary provider for follow-up. Return to the emergency department for any new or worsening symptoms Prescriptions: No Action atorvastatin 20 mg Tablet 40 mg PO BEDTIME RF: 0 diphenoxylate-atropine [Lomotil] 2.5-0.025 mg Tablet 1 tab TID RF: 0 gabapentin 300 mg Capsule 900 mg PO QID RF: 0 metoprolol succinate 25 mg Tablet Extended Release 24 Hr 12.5 mg PO BID RF: 0 Creon 12,000-38,000 -60,000 unit Capsule,Delayed Release(Dr/Ec) 1 cap PO TID RF: 0 potassium citrate 15 mEq Tablet Extended Release 20 meq PO BID RF: 0 morphine 15 mg Tablet Extended Release 15 mg PO Q12H PRN (Reason: liver pain) RF: 0 insulin aspart U-100 [Novolog Flexpen U-100 Insulin] 100 unit/mL (3 mL) insulin pen 0 unit SUBCUT DIRECTED RF: 0 oxycodone 10 mg tablet 5 - 10 mg PO Q4-6H PRN (Reason: pain) RF: 0 Tresiba FlexTouch U-200 200 unit/mL (3 mL) insulin pen 120 unit SUBCUT DAILY RF: 0 Narcan 4 mg/actuation spray,non-aerosol 1 spray INTRANASAL PRN PRN (Reason: Opioid Overdose) RF: 0 lorazepam 1 mg tablet 5 mg PO BEDTIME PRN (Reason: Anxiety) RF: 0 letrozole 2.5 mg tablet 2.5 mg PO DAILY RF: 0 Referrals: Mary Head MD [Primary Care Provider] -
[2020-10-03 16:48] LABS: PTT Partial Thromboplastin Tim 31 SECONDS (26.4-36.2)
[2020-10-03 16:50] LABS: BUN Creatinine Ratio 19.7 (6-22); Blood Urea Nitrogen 14 mg/dL (7-17); Calcium 8.7 mg/dL (8.4-10.2); Carbon Dioxide 28 mmol/L (22-32); Chloride 103 mmol/L (98-107); Creatine Kinase 40 U/L (30-135); Estimated Glomerular Filt Rate > 60.0 mL/min (>60); Glucose 320 mg/dL (80-110); HEMOLYSIS < 15 (0-50); Sodium 135 mmol/L (137-145)
[2020-10-03 17:00] VITALS: PULSE 70; O2SAT 97
[2020-10-03 17:00] LABS: Alanine Aminotransferase 34 IU/L (<35); Albumin 3.4 g/dL (3.5-5.0); Albumin Globulin Ratio 0.9 (1.0-2.8); Alkaline Phosphatase 376 U/L (38-126); Aspartate Aminotransferase 42 IU/L (14-36); Bilirubin Unconjugated 0.2 mg/dL (0.0-1.1); Globulin 3.8 g/dL (1.7-4.1); HEMOLYSIS < 15 (0-50); Lipase 67 U/L (23-300); Total Protein 7.2 g/dL (6.3-8.2)
[2020-10-03 17:01] VITALS: BP 107/58; PULSE 70; O2SAT 97
[2020-10-03 17:01] LABS: Bilirubin Total 0.5 mg/dL (0.2-1.3); Troponin I < 0.012 ng/mL (0.01-0.034)
[2020-10-03 17:14] LABS: RBC Morphology Normal Morphology
[2020-10-03 17:15] LABS: Platelet Estimate Decreased on smear
[2020-10-03 17:48] VITALS: BP 120/70; PULSE 78; RESP 16; O2SAT 99
== END 2020-10-03 17:48 | disposition home or self-care (01) ==
PROVIDERS: Emergency Provider Emergency Medicine; PCP Internal Medicine
DX: R07.89 Other chest pain (principal); R51.9 Headache, unspecified; M25.511 Pain in right shoulder
CPT/HCPCS: 36415; 71045; 80048; 80076; 82550; 83690; 84484; 85025; 85610; 85730; 93005; 99284

== ENCOUNTER → 2021-01-18 16:08 | Oncology outpatient (ONC) | payer MEDICARE, MEDICAID, SELFPAY ==
--- NOTE | 2020-08-14 10:53 | ONC.SCHED ---
JOSETTE from Jane Dempsey who works at [employer] in [place]. She was called to let us know that this patient is supposed to be getting an injection but that it is not approved by her medical coverage. To me, it sounded like Jane is under the impression that the patient is getting the injection today but she is a new patient to us and Dr. Martin. Phone call came from [phone] but contact number given is [phone].
--- NOTE | 2020-08-14 16:36 | P.CONONC_ITS ---
History of Present Illness - Data of Consult Patient: new to practice Consult date: 08/14/20 Requesting Physician: Mary Head MD Primary Care Provider: Mary Head MD - Consult Narrative Reason for consult: Neuroendocrine tumor of the pancreas Narrative: Shirley Davila is a 60 year old female. In February 2015, the patient presented with acute onset of right upper quadrant and right lateral lower anterior chest discomfort exacerbated by if breathing for about 6 days before he was evaluated at [facility] ER. CT scan showed multiple hypodense lesions in the liver in both lobes, largest 4.8 cm in diameter with an atrophic pancreas, 10 mm pancreatic duct, no discrete pancreatic masses and moderately enlarged upper abdominal lymph nodes adjacent to the pancreatic head. On 03/06/2015, patient underwent ultrasound-guided biopsy of 2 right hepatic lobe hypoechoic masses. The pathology showed epithelial neoplasm with features suggestive of metastatic neuroendocrine tumor, Ki67 9%. She was started on lanreotide 120 mg subcu every 4 weeks together with everolimus 10 mg once a day. Unfortunately, within 8 months, she had progressive disease so the everolimus was held. The line real tight continued. She received 2 hepatic lesions: Right lobe in January 2016 and the left lobe in April 2016. During this same period of time, patient was diagnosed with endometrium cancer, stage I, treate with brachytherapy and D&C, diagnosed in late 2015. She also had right breast cancer diagnosed 08/2017, status post lumpectomy. She had local recurrence in 04/2018, and was treated with localized radiation. Her symptoms started to recur again and by January 2019, follow-up scans on 07/14/2019 CT showed new liver lesions measuring up to 2.8 cm. Patient was eval uated at [facility] for further recommendations. Later her dosage than real tight was increased to 120 mg subcu every 3 weeks. Dec 03, 2019 she was started on Lutetium 177 treatment every 8 weeks, completed 06/09/2020 at [facility]. Now she said that she is more tired, had tremors (bad in the morning). No pain problems. During 10/2019, she was having right liver pain. But at present, she dost not have any liver pain. Now she is on Creon, and Lomotil. 4-5 times loose stool before noon, and then eased up. She used to have ppe: fluctuates. get nautious from time to time, but vomiting. no shortness of breath, no chest pain. she gets a cough, no disease in the time. no bone pain. CC: Tegan Martin MD Home Medications and Allergies Home Medications Medication Instructions Recorded Confirmed Type promethazine 25 mg PO Q4-6H PRN #20 tab 08/30/19 08/14/20 Rx insulin aspart U-100 [Novolog 0 unit SUBCUT DIRECTED 09/15/19 08/14/20 History Flexpen U-100 Insulin] insulin degludec [Tresiba 120 unit SUBCUT DAILY 09/15/19 08/14/20 History FlexTouch U-200] naloxone [Narcan] 1 spray INTRANASAL PRN PRN 09/15/19 08/14/20 History oxycodone 5 - 10 mg PO Q4-6H PRN 09/15/19 08/14/20 History letrozole 2.5 mg tablet 2.5 mg PO DAILY tab 05/10/20 08/14/20 History lorazepam 1 mg tablet 5 mg PO BEDTIME PRN tab 05/10/20 08/14/20 History atorvastatin 40 mg PO BEDTIME 08/14/20 08/14/20 History diphenoxylate-atropine [Lomotil] 1 tab TID 08/14/20 08/14/20 History gabapentin 900 mg PO QID 08/14/20 08/14/20 History shiraw-[id number]-uobtnxg [Creon] 1 cap PO TID 08/14/20 08/14/20 History metoprolol succinate 12.5 mg PO BID 08/14/20 08/14/20 History potassium citrate 20 meq PO BID 08/14/20 08/14/20 History Allergies Allergy/AdvReac Type Severity Reaction Status Date / Time hydromorphone [From Dilaudid] AdvReac Verified 07/26/20 15:43 morphine AdvReac Verified 07/26/20 15:43 Penicillins AdvReac Verified 07/26/20 15:43 prochlorperazine AdvReac Verified 07/26/20 15:43 [From Compazine] Sulfa (Sulfonamide AdvReac Verified 07/26/20 15:43 Antibiotics) Medical History - Medical, Surgical, Family History Medical History: Medical History (Last Updated 08/14/20 @ 17:03 by Tegan Martin MD) Breast cancer Diabetes Endometrium cancer Neuroendocrine cancer Neuropathy Family History: Family History (Last Updated 08/14/20 @ 17:05 by Tegan Martin MD) Family/Other Heart disease Hypertension Father Loud snoring Sleep apnea Alcohol abuse Anxiety Dementia Heart disease Restless leg Mother Anxiety Dementia Depression Restless leg Obesity Breast cancer Family/Other Substance abuse Alcohol abuse Anxiety Depression - Social History Smoking Status: Never smoker Substance Use Type: does not use Alcohol Intake: never Exam Vital signs: 08/14/20 17:34 Last Vital Signs Temp 98 F 08/14/20 16:43 Pulse 63 08/14/20 16:43 Resp 20 08/14/20 16:43 BP 138/74 08/14/20 16:43 Pulse Ox 99 08/14/20 16:43 - Constitutional positive no acute distress, positive chronically ill appearing, positive cooperative - Routine HEENT Exam Head: Present: normocephalic, atraumatic Eye: Present: EOMI, PERRL, normal accommodation. Absent: conjunctival icterus - Routine Neck Exam Present: supple - Routine Chest/Breast/Axilla Exam Axillae: Absent: lymphadenopathy - Detailed Breast Exam left Inspection: Absent: rash, erythema, swelling, peau d'orange, nipple discharge, area of retraction Palpation: Absent: mass, tenderness, induration right Inspection: Present: area of retraction (Lumpectomy x2 status post radiation.). Absent: rash, erythema, swelling, peau d'orange, nipple discharge, discharge Palpation: Present: induration. Absent: mass, tenderness, implant - Routine Respiratory Exam Present: Clear to auscultation bilaterally. Absent: accessory muscle use, rales, respiratory distress, wheezes, crackles - Routine Abdominal Exam Absent: soft, tenderness, distended, organomegaly - Routine Neurological Exam Present: alert, oriented X3, CN II-XII intact. Absent: sensory deficit, motor deficit - Routine Psychiatric Exam Present: normal affect Assessment and Plan (1) Breast cancer, right breast Overview: Assessment: Right breast ER positive cancer diagnosed in 2017 status post lumpectomy. Patient had a local recurrence in 2018 and under went resection followed by radiation therapy currently on letrozole. Clinically patient does not have any signs or symptoms to suggest disease recurrence or metastasis. I will continue current treatment with letrozole. Plan: Continue letrozole 2.5 mg once a day Screening mammogram Return to clinic in 5 weeks to review the results. 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 Patient underwent white 90 radioembolization, octreotide treatment, everolimus, and recently PRRT. Assessment: I will continue current treatment without any changes. Plan: CBC, CMP, CGA 24 hour urine HIAA Lanreotide 120 mg q3w once approved RTC in 5 weeks (3) Neuroendocrine tumor of pancreas
[2020-08-14 16:43] VITALS: BP 138/74; PULSE 63; RESP 20; TEMP 36.6; O2SAT 99
--- NOTE | 2020-08-16 11:00 | ONC.SCHED ---
Per Mariam Lainez in Patient Accounts Lanreotide J1930 is billable and payable under Medicare guidelines. This drug passed under code correct as medically necessary under the code C7B.8 according to Mariam. My code correct was not working at the time so she checked it along with Medicare guidelines. I gave this message to Pillo who will order the medication. I did let Pillo know to contact Mariam regarding setting up the billing for this drug. I will wait for Pillo and Dr. Martin to give the go ahead to schedule everything for this patient. Should be able to do this tomorrow when Dr. Martin is back in office.
--- NOTE | 2020-08-16 14:24 | ONC.SCHED ---
Left ms. for patient to see if she could come in @ 2:30 tomorrow for lab draw for my risk per Mari.
--- NOTE | 2020-08-17 10:12 | ONC.SCHED ---
Left msg. for patient to get her scheduled for her mammo and labs that Dr. Martin ordered.
[2020-08-17 16:13] LABS: Add Manual Diff / Slide Review NO; Basophils Absolute Auto 0 /uL (0-100); Basophils Percent Auto 0.7 % (0-2); Eosinophils Absolute Auto 500 /uL (0-450); Eosinophils Percent Auto 8.2 % (2-4); Hematocrit 33.9 % (36-46); Hemoglobin 11.4 g/dL (12.0-16.0); Lymphocytes Absolute Auto 400 /uL (1100-4500); Lymphocytes Percent Auto 7.5 % (25-40); Mean Corpuscular HGB Conc 33.6 % (30-36); Mean Corpuscular Hemoglobin 32.7 PG (26-34); Mean Corpuscular Volume 97.1 fL (80-100); Monocytes Absolute Auto 300 /uL (0-900); Monocytes Percent Auto 5.5 % (3-14); Neutrophils Absolute Auto 4700 /uL (1500-7000); Neutrophils Percent Auto 78.1 % (50-75); Platelet Count 137 X10^3/uL (150-400); Red Blood Cell Count 3.49 X10^6/uL (4.0-5.2); Red Cell Distribution Width 15.8 % (11.6-14.8)
[2020-08-17 16:26] LABS: Alanine Aminotransferase 44 IU/L (<35); Albumin 3.3 g/dL (3.5-5.0); Albumin Globulin Ratio 0.9 (1.0-2.8); Alkaline Phosphatase 454 U/L (38-126); Aspartate Aminotransferase 55 IU/L (14-36); BUN Creatinine Ratio 12.5 (6-22); Bilirubin Total 0.4 mg/dL (0.2-1.3); Blood Urea Nitrogen 9 mg/dL (7-17); Calcium 8.5 mg/dL (8.4-10.2); Carbon Dioxide 32 mmol/L (22-32); Chloride 100 mmol/L (98-107); Estimated Glomerular Filt Rate > 60.0 mL/min (>60); Globulin 3.7 g/dL (1.7-4.1); Glucose 291 mg/dL (80-110); HEMOLYSIS < 15 (0-50); Potassium 4.2 mmol/L (3.4-5.1); Sodium 136 mmol/L (137-145)
[2020-08-22 13:36] LABS: Chromogranin A, Serum 104.1 ng/mL (0.0-101.8)
[2020-08-26 00:07] LABS: 5-HIAA, Urine 10.4 mg/L (Undefined)
--- NOTE | 2020-08-29 15:02 | ONC.SCHED ---
Left patient a VM letting her know Dr. Martin has ordered her Lanreotide and it can be scheduled. Pillo has the medication and Medicare has been code checked with Mariam on this newer drug for us to administer for this patient.
--- NOTE | 2020-09-04 12:56 | ONC.SCHED ---
Returned patient's call regarding labs and schedule for . Let patient know her labs do need to be drawn per Dr. Martin the last lab draw is too old; new orders have been entered. I gave detailed msg. on VM as I know patient is also having cell phone problems today as well.
[2020-09-05 11:46] LABS: Add Manual Diff / Slide Review NO; Basophils Absolute Auto 0 /uL (0-100); Basophils Percent Auto 1.2 % (0-2); Eosinophils Absolute Auto 200 /uL (0-450); Eosinophils Percent Auto 5.8 % (2-4); Hematocrit 33.1 % (36-46); Hemoglobin 10.9 g/dL (12.0-16.0); Lymphocytes Absolute Auto 300 /uL (1100-4500); Lymphocytes Percent Auto 7.5 % (25-40); Mean Corpuscular HGB Conc 32.9 % (30-36); Mean Corpuscular Hemoglobin 31.6 PG (26-34); Mean Corpuscular Volume 96.1 fL (80-100); Monocytes Absolute Auto 400 /uL (0-900); Monocytes Percent Auto 9.8 % (3-14); Neutrophils Absolute Auto 3200 /uL (1500-7000); Neutrophils Percent Auto 75.7 % (50-75); Platelet Count 102 X10^3/uL (150-400); Red Blood Cell Count 3.44 X10^6/uL (4.0-5.2); Red Cell Distribution Width 15.7 % (11.6-14.8); White Blood Cell Count 4.2 X10^3/uL (4.5-11.0)
[2020-09-05 11:47] LABS: Alanine Aminotransferase 45 IU/L (<35); Albumin 3.3 g/dL (3.5-5.0); Albumin Globulin Ratio 0.9 (1.0-2.8); Alkaline Phosphatase 471 U/L (38-126); Aspartate Aminotransferase 55 IU/L (14-36); BUN Creatinine Ratio 12.7 (6-22); Bilirubin Total 0.4 mg/dL (0.2-1.3); Blood Urea Nitrogen 9 mg/dL (7-17); Calcium 8.5 mg/dL (8.4-10.2); Carbon Dioxide 30 mmol/L (22-32); Chloride 105 mmol/L (98-107); Estimated Glomerular Filt Rate > 60.0 mL/min (>60); Globulin 3.5 g/dL (1.7-4.1); Glucose 238 mg/dL (80-110); HEMOLYSIS < 15 (0-50); Potassium 3.9 mmol/L (3.4-5.1); Sodium 139 mmol/L (137-145); Total Protein 6.8 g/dL (6.3-8.2)
[2020-09-07 11:37] VITALS: BP 120/79; PULSE 57; RESP 16; TEMP 36.9; O2SAT 100
[2020-09-07] MEDS: LANREOTIDE 120 MG/0.5 ML SUBCUT (11:52)
--- NOTE | 2020-09-12 09:43 | ONC.SCHED ---
[facility] note faxed stating delay in processing, dated 09/08/2020
--- NOTE | 2020-09-18 10:16 | ONC.SCHED ---
left voice mail for patient to call and reschedule/no show for 09/18/20
--- NOTE | 2020-09-18 16:17 | ONC.PN ---
PN -Subjective Interval history: ID/CC: 60 year old with breast cancer and pancreatic neuroendocrine tumor History of Present Illness: Please see my previous note dated August 14 for more details. In that note, there are several typos due to sound-alike when dictating with [employer] Fluency. Here is a corrected version. In Feb 2015, she presented with scute onset of right upper quadrant and right lateral lower anterior chest discomfort exacerbated by if breathing for about 6 days before he was evaluated at [facility]. CT scan showed multiple hypodense lesions in the liver in both lobes, largest 4.8 cm in diameter with an atrophic pancreas, 10 mm pancreatic duct, no discrete pancreatic masses and moderately enlarged upper abdominal lymph nodes adjacent to the pancreatic head. On 03/06/2015, patient underwent ultrasound-guided biopsy of two right hepatic lobe hypoechoic masses. The pathology showed epithelial neoplasm with features suggestive of metastatic neuroendocrine tumor, Ki67 9%. She was started on lanreotide 120 mg subcutaneously every 4 weeks in combination with everolimus 10 mg once a day. Unfortunately, within 8 months, she had progressive disease so the everolimus was held. The lanreotide continued. She underwent 2 hepatic lesion ablations: right lobe in January 2016 and the left lobe in April 2016. Her symptoms improved significantly after the ablation. During this same period of time, in late 2015, patient was diagnosed with endometrium cancer, stage I, treated with brachytherapy and D&C, diagnosed in late 2015. She also had right breast cancer diagnosed 08/2017, status post lumpectomy. She had local recurrence in 04/2018, and was treated with localized radiation. Her symptoms started to recur again and by January 2019, follow-up scans on 07/14/2019 CT showed new liver lesions measuring up to 2.8 cm. Patient was evaluated at [facility] for further recommendations. Later her dosage of Lanreotide was increased to 120 mg subcu every 3 weeks. Dec 03, 2019 she was started on Lutetium 177 treatment every 8 weeks, completed 06/09/2020 at [facility]. Now she is also taking Creon, and Lomotil. 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 She would have 6-7 times of bowel movement. Interestingly, during the day, she said she has been doing fine. She denies any shortness of breath or chest pain. She does have abdominal discomfort which she attributed to bearing down when defecation. Patient currently is taking lanreotide 120 mg once every 3 weeks based on [facility] recommendation. [place] study on 08/17/2020 showed no mutation in BRCA1/2, but an inconclusive TP53 mutation ([id number])) . - Patient Self-Reported Symptoms SR Constitution: Chills, Weight loss/gain, Fatigue/Malaise, Night Sweats SR eye issues: Vision changes SR ears, nose, mouth, throat issues: Difficulty swallowing, Mouth sores, Bleeding gums, Hoarseness SR respiratory issues: Difficulty breathing, Mucous SR Skin issues: Dry skin SR Gastrointestinal issues: Poor or no appetite, Change in bowel pattern, Nausea, Diarrhea SR Neuro issues: Headache, Lightheaded/dizzy, Numbness or tingling, Difficulty balancing SR Endocrine issues: Excessive thirst, Hot flashes - Additional ROS All systems PM: reviewed and no additional remarkable complaints except as stated Home Medications and Allergies Home Medications Medication Instructions Recorded Confirmed Type insulin aspart U-100 [Novolog 0 unit SUBCUT DIRECTED 09/15/19 09/18/20 History Flexpen U-100 Insulin] insulin degludec [Tresiba 120 unit SUBCUT DAILY 09/15/19 09/18/20 History FlexTouch U-200] naloxone [Narcan] 1 spray INTRANASAL PRN PRN 09/15/19 09/18/20 History oxycodone 5 - 10 mg PO Q4-6H PRN 09/15/19 09/18/20 History letrozole 2.5 mg tablet 2.5 mg PO DAILY tab 05/10/20 09/18/20 History lorazepam 1 mg tablet 5 mg PO BEDTIME PRN tab 05/10/20 09/18/20 History atorvastatin 40 mg PO BEDTIME 08/14/20 09/18/20 History diphenoxylate-atropine [Lomotil] 1 tab TID 08/14/20 09/18/20 History gabapentin 900 mg PO QID 08/14/20 09/18/20 History cxtgol-oipyffgz-agihgyt [Creon] 1 cap PO TID 08/14/20 09/18/20 History metoprolol succinate 12.5 mg PO BID 08/14/20 09/18/20 History potassium citrate 20 meq PO BID 08/14/20 09/18/20 History morphine 15 mg PO Q12H PRN 08/17/20 09/18/20 History Allergies Allergy/AdvReac Type Severity Reaction Status Date / Time hydromorphone [From Dilaudid] AdvReac Verified 07/26/20 15:43 morphine AdvReac Verified 07/26/20 15:43 Penicillins AdvReac Verified 07/26/20 15:43 prochlorperazine AdvReac Verified 07/26/20 15:43 [From Compazine] Sulfa (Sulfonamide AdvReac Verified 07/26/20 15:43 Antibiotics) Exam Vital signs: Last Vital Signs Temp 98.4 F 09/07/20 11:37 Pulse 63 09/18/20 16:57 Resp 18 09/18/20 16:57 BP 129/81 09/18/20 16:57 Pulse Ox 98 09/18/20 16:57 - Constitutional positive no acute distress, positive chronically ill appearing, positive cooperative - Routine HEENT Exam Head: Present: normocephalic Eye: Present: EOMI, PERRL, normal accommodation. Absent: conjunctival icterus - Routine Neck Exam Present: supple. Absent: lymphadenopathy - Routine Respiratory Exam Present: Clear to auscultation bilaterally. Absent: wheezes - Routine Cardiovascular Exam Present: RRR, S1, S2. Absent: murmur, gallop, rubs - Routine Abdominal Exam Present: soft. Absent: tenderness, organomegaly - Routine Extremities Exam Absent: edema - Routine Neurological Exam Present: alert, oriented X3, CN II-XII intact. Absent: sensory deficit, motor deficit - Routine Psychiatric Exam Present: normal affect Results - Labs Laboratory Last Values WBC 4.2 X10^3/uL (4.5-11.0) L 09/05/20 11:16 RBC 3.44 X10^6/uL (4.0-5.2) L 09/05/20 11:16 Hgb 10.9 g/dL (12.0-16.0) L 09/05/20 11:16 Hct 33.1 % (36-46) L 09/05/20 11:16 MCV 96.1 fL (80-100) 09/05/20 11:16 MCH 31.6 PG (26-34) 09/05/20 11:16 MCHC 32.9 % (30-36) 09/05/20 11:16 RDW 15.7 % (11.6-14.8) H 09/05/20 11:16 Plt Count 102 X10^3/uL (150-400) L 09/05/20 11:16 Neut % (Auto) 75.7 % (50-75) H 09/05/20 11:16 Lymph % (Auto) 7.5 % (25-40) L 09/05/20 11:16 [place] % (Auto) 9.8 % (3-14) 09/05/20 11:16 Eos % (Auto) 5.8 % (2-4) H 09/05/20 11:16 Baso % (Auto) 1.2 % (0-2) 09/05/20 11:16 Neut # (Auto) 3200 /uL (2004-8553) 09/05/20 11:16 Lymph # (Auto) 300 /uL (8613-0569) L 09/05/20 11:16 [place] # (Auto) 400 /uL (0-900) 09/05/20 11:16 Eos # (Auto) 200 /uL (0-450) 09/05/20 11:16 Baso # (Auto) 0 /uL (0-100) 09/05/20 11:16 Sodium 139 mmol/L (137-145) 09/05/20 11:16 Potassium 3.9 mmol/L (3.4-5.1) 09/05/20 11:16 Chloride 105 mmol/L (98-107) 09/05/20 11:16 Carbon Dioxide 30 mmol/L (22-32) 09/05/20 11:16 BUN 9 mg/dL (7-17) 09/05/20 11:16 Creatinine 0.71 mg/dL (0.52-1.04) 09/05/20 11:16 Estimated GFR > 60.0 mL/min (>60) 09/05/20 11:16 BUN/Creatinine Ratio 12.7 (6-22) 09/05/20 11:16 Glucose 238 mg/dL (80-110) H 09/05/20 11:16 Calcium 8.5 mg/dL (8.4-10.2) 09/05/20 11:16 Total Bilirubin 0.4 mg/dL (0.2-1.3) 09/05/20 11:16 AST 55 IU/L (14-36) H 09/05/20 11:16 ALT 45 IU/L (<35) H 09/05/20 11:16 Alkaline Phosphatase 471 U/L (38-126) H 09/05/20 11:16 Total Protein 6.8 g/dL (6.3-8.2) 09/05/20 11:16 Albumin 3.3 g/dL (3.5-5.0) L 09/05/20 11:16 Globulin 3.5 g/dL (1.7-4.1) 09/05/20 11:16 Albumin/Globulin Ratio 0.9 (1.0-2.8) L 09/05/20 11:16 Urine 5-HIAA 24 Hour 10.4 mg/L (Undefined) 08/19/20 12:43 Ur 5-HIAA 24H Confirm 13.0 mg/24 hr (0.0-14.9) 08/19/20 12:43 Chromogranin A 104.1 ng/mL (0.0-101.8) H 08/17/20 16:00 Assessment and Plan (1) Metastatic malignant neuroendocrine tumor to liver Overview: Diagnosed with 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 Patient underwent Y90 radioembolization, octreotide treatment, everolimus, and recently PRRT. On 09/07/2020, patient was started on lanreotide 120 mg subcutaneously once a month. Assessment: She just started on Lanreotide on 09/07/20. I explained to her that it is too soon to evaluate the response. I recommended continuing current Lanreotide injection. I will see her in about 4-6 weeks. Plan: CBC, CMP, CGA Lanreotide 120 mg q3w once approved RTC in 5 weeks (2) Neuroendocrine tumor of pancreas See above. (3) Breast cancer, right breast Right breast ER positive cancer diagnosed in 2017 status post lumpectomy. Patient had a local recurrence in 2018 and under went resection followed by radiation therapy currently on letrozole. Clinically patient does not have any signs or symptoms to suggest disease recurrence or metastasis. On 08/31/2020, mammogram showed no evidence of malignancy. I will continue current treatment with letrozole. Plan: Continue letrozole 2.5 mg once a day Screening mammogram annually, next due 08/2021
[2020-09-18 16:57] VITALS: BP 129/81; PULSE 63; RESP 18; O2SAT 98
[2020-09-28 13:32] VITALS: BP 101/58; PULSE 65; RESP 15; TEMP 36; O2SAT 100
--- NOTE | 2020-09-28 14:22 | PHA.NOTE ---
Lanreotide Treatment Patient is scheduled for lanreotide injection today. Patient's labs were done from outside clinic on 09/20/2020. Reviewed labs, all WNL, excep Plt is slight low = 99 Per RN, MD is ok'd to proceed with labs as above. Requested RN to scan above labs into patient's chart
[2020-09-28] MEDS: LANREOTIDE 120 MG/0.5 ML SUBCUT (14:48)
--- NOTE | 2020-09-29 10:25 | ONC.SCHED ---
Scheduled next injection. Waiting to schedule next appointment until administration informs us whether we are seeing patients on 11/16/2020.
--- NOTE | 2020-09-29 14:08 | ONC.SCHED ---
Scheduled 11/16/20 follow-up and injection when I learned that we will be open 1/2 day on Dequan Ericka.
--- NOTE | 2020-10-05 16:05 | PC.NURSE ---
late note: At last clinic visit on 09/28/2020 pt expressed emotional challenges r/t coping with diagnosis during pandemic. Pt further expressed feelings of isolation and loneliness r/t lack of support system. Denies issues r/t self harm. Listen to pt voice feelings. Also, discussed the roles of the medical record retrieval specialist, Johanna, with pt. Will notify Johanna with this note requesting medical record retrieval specialist reach out to pt to discuss above.
[2020-10-26 13:51] LABS: Add Manual Diff / Slide Review NO; Basophils Absolute Auto 200 /uL (0-100); Eosinophils Absolute Auto 300 /uL (0-450); Eosinophils Percent Auto 5.5 % (2-4); Hematocrit 33.2 % (36-46); Hemoglobin 10.8 g/dL (12.0-16.0); Lymphocytes Absolute Auto 500 /uL (1100-4500); Mean Corpuscular HGB Conc 32.6 % (30-36); Mean Corpuscular Hemoglobin 29.2 PG (26-34); Mean Corpuscular Volume 89.4 fL (80-100); Monocytes Absolute Auto 400 /uL (0-900); Monocytes Percent Auto 8.4 % (3-14); Neutrophils Absolute Auto 3300 /uL (1500-7000); Neutrophils Percent Auto 71.1 % (50-75); Platelet Count 85 X10^3/uL (150-400); Red Blood Cell Count 3.71 X10^6/uL (4.0-5.2); Red Cell Distribution Width 19.2 % (11.6-14.8); White Blood Cell Count 4.7 X10^3/uL (4.5-11.0)
[2020-10-26 14:00] LABS: Alanine Aminotransferase 46 IU/L (<35); Albumin 3.3 g/dL (3.5-5.0); Albumin Globulin Ratio 0.9 (1.0-2.8); Alkaline Phosphatase 335 U/L (38-126); Aspartate Aminotransferase 43 IU/L (14-36); BUN Creatinine Ratio 15.2 (6-22); Bilirubin Total 0.5 mg/dL (0.2-1.3); Blood Urea Nitrogen 12 mg/dL (7-17); Calcium 8.7 mg/dL (8.4-10.2); Carbon Dioxide 30 mmol/L (22-32); Chloride 107 mmol/L (98-107); Estimated Glomerular Filt Rate > 60.0 mL/min (>60); Globulin 3.7 g/dL (1.7-4.1); Glucose 208 mg/dL (80-110); HEMOLYSIS < 15 (0-50); Potassium 4.2 mmol/L (3.4-5.1); Sodium 139 mmol/L (137-145)
[2020-10-26 14:08] VITALS: BP 103/55; PULSE 58; RESP 18; TEMP 36.3; O2SAT 97
[2020-10-26 14:12] LABS: Magnesium 1.7 mg/dL (1.6-2.3)
[2020-10-26] MEDS: LANREOTIDE 120 MG/0.5 ML SUBCUT (14:47)
[2020-10-30 15:14] LABS: Chromogranin A, Serum 66.9 ng/mL (0.0-101.8)
[2020-12-21 14:55] VITALS: BP 109/67; PULSE 63; RESP 18; TEMP 37; O2SAT 100
[2020-12-21 15:01] LABS: Basophils Absolute Auto 100 /uL (0-100); Basophils Percent Auto 3.8 % (0-2); Eosinophils Absolute Auto 300 /uL (0-450); Eosinophils Percent Auto 10.5 % (2-4); Hematocrit 32.7 % (36-46); Hemoglobin 10.4 g/dL (12.0-16.0); Lymphocytes Absolute Auto 500 /uL (1100-4500); Lymphocytes Percent Auto 16.3 % (25-40); Mean Corpuscular HGB Conc 31.9 % (30-36); Mean Corpuscular Hemoglobin 26.7 PG (26-34); Mean Corpuscular Volume 83.5 fL (80-100); Monocytes Absolute Auto 400 /uL (0-900); Monocytes Percent Auto 12.4 % (3-14); Neutrophils Absolute Auto 1700 /uL (1500-7000); Red Blood Cell Count 3.92 X10^6/uL (4.0-5.2); Red Cell Distribution Width 21.6 % (11.6-14.8); White Blood Cell Count 2.9 X10^3/uL (4.5-11.0)
[2020-12-21 15:02] LABS: Add Manual Diff / Slide Review SLIDE REVIEW
[2020-12-21 15:14] LABS: Alanine Aminotransferase 43 IU/L (<35); Albumin 3.2 g/dL (3.5-5.0); Albumin Globulin Ratio 0.9 (1.0-2.8); Alkaline Phosphatase 360 U/L (38-126); Aspartate Aminotransferase 49 IU/L (14-36); BUN Creatinine Ratio 14.7 (6-22); Bilirubin Total 0.2 mg/dL (0.2-1.3); Blood Urea Nitrogen 10 mg/dL (7-17); Calcium 8.3 mg/dL (8.4-10.2); Carbon Dioxide 30 mmol/L (22-32); Chloride 103 mmol/L (98-107); Estimated Glomerular Filt Rate > 60.0 mL/min (>60); Globulin 3.4 g/dL (1.7-4.1); Glucose 346 mg/dL (80-110); HEMOLYSIS 15 (0-50); Sodium 136 mmol/L (137-145); Total Protein 6.6 g/dL (6.3-8.2)
--- NOTE | 2020-12-21 15:30 | P.PNONC_ITS ---
PN -Subjective Interval history: ID/CC: 60 year old with breast cancer and pancreatic neuroendocrine tumor History of Present Illness: Please see my previous note dated August 14 for more details. In that note, there are several typos due to sound-alike when dictating with MModal Fluency. Here is a corrected version. In Feb 2015, she presented with acute onset of right upper quadrant and right lateral lower anterior chest discomfort exacerbated by if breathing for about 6 days before he was evaluated at [facility]. CT scan showed multiple hypodense lesions in the liver in both lobes, largest 4.8 cm in diameter with an atrophic pancreas, 10 mm pancreatic duct, no discrete pancreatic masses and moderately enlarged upper abdominal lymph nodes adjacent to the pancreatic head. On 03/06/2015, patient underwent ultrasound-guided biopsy of two right hepatic lobe hypoechoic masses. The pathology showed epithelial neoplasm with features suggestive of metastatic neuroendocrine tumor, Ki67 9%. She was started on lanreotide 120 mg subcutaneously every 4 weeks in combination with everolimus 10 mg once a day. Unfortunately, within 8 months, she had progressive disease so the everolimus was held. The lanreotide continued. She underwent 2 hepatic lesion ablations: right lobe in January 2016 and the left lobe in April 2016. Her symptoms improved significantly after the ablation. During this same period of time, in late 2015, patient was diagnosed with endometrium cancer, stage I, treated with brachytherapy and D&C, diagnosed in late 2015. She also had right breast cancer diagnosed 08/2017, status post lumpectomy. She had local recurrence in 04/2018, and was treated with localized radiation. Her symptoms started to recur again and by January 2019, follow-up scans on 07/14/2019 CT showed new liver lesions measuring up to 2.8 cm. Patient was evaluated at [facility] for further recommendations. Her dosage of Lanreotide was increased to 120 mg subcu every 3 weeks. Dec 03, 2019 she was started on Lutetium 177 treatment every 8 weeks, [facility] Now she is also taking Creon, and Lomotil. Interim Events : She is reporting upper tummy swollen and hard. She aslso said that she could not eat dairy products. The Zenpep is helpful. Her diarrhea comes and goes, and he would never know when it would happened again. She said that her stool is pretty soft. 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 - Patient Self-Reported Symptoms SR Constitution: Fatigue/Malaise, Night Sweats SR eye issues: Vision changes SR ears, nose, mouth, throat issues: Cough, Difficulty swallowing, Bleeding gums SR respiratory issues: Difficulty breathing, Mucous SR Cardiovascular issues: Dizzy/lightheaded SR Skin issues: Dry skin, Skin rash or itching SR Gastrointestinal issues: Nausea, Diarrhea, Abdominal pain SR Musculoskeletal issues: Muscle pain or cramps, Cold hands or feet, Difficulty walking SR Neuro issues: Headache, Lightheaded/dizzy, Numbness or tingling, Tremors or shaking, Difficulty balancing SR Endocrine issues: Cold intolerance, Excessive thirst - Additional ROS All systems PM: reviewed and no additional remarkable complaints except as stated Home Medications and Allergies Home Medications Medication Instructions Recorded Confirmed Type insulin aspart U-100 [Novolog 0 unit SUBCUT DIRECTED 09/15/19 09/18/20 History Flexpen U-100 Insulin] insulin degludec [Tresiba 120 unit SUBCUT DAILY 09/15/19 09/18/20 History FlexTouch U-200] naloxone [Narcan] 1 spray INTRANASAL PRN PRN 09/15/19 09/18/20 History oxycodone 5 - 10 mg PO Q4-6H PRN 09/15/19 09/18/20 History letrozole 2.5 mg tablet 2.5 mg PO DAILY tab 05/10/20 09/18/20 History lorazepam 1 mg tablet 5 mg PO BEDTIME PRN tab 05/10/20 09/18/20 History atorvastatin 40 mg PO BEDTIME 08/14/20 09/18/20 History diphenoxylate-atropine [Lomotil] 1 tab TID 08/14/20 09/18/20 History gabapentin 900 mg PO QID 08/14/20 09/18/20 History [id number] [Creon] 1 cap PO TID 08/14/20 09/18/20 History metoprolol succinate 12.5 mg PO BID 08/14/20 09/18/20 History potassium citrate 20 meq PO BID 08/14/20 09/18/20 History morphine 15 mg PO Q12H PRN 08/17/20 09/18/20 History Allergies Allergy/AdvReac Type Severity Reaction Status Date / Time hydromorphone [From Dilaudid] AdvReac Verified 07/26/20 15:43 morphine AdvReac Verified 07/26/20 15:43 Penicillins AdvReac Verified 07/26/20 15:43 prochlorperazine AdvReac Verified 07/26/20 15:43 [From Compazine] Sulfa (Sulfonamide AdvReac Verified 07/26/20 15:43 Antibiotics) Exam Vital signs: Vital Signs Temp Pulse Resp BP Pulse Ox 12/21/20 14:55 98.6 F 63 18 109/67 100 Intake and Output 12/20/20 12/21/20 12/21/20 23:59 07:59 15:59 Other: Weight 110.8 kg Patient Weight 12/21/20 23:59 Weight 110.8 kg Results - Labs Laboratory Last Values WBC 2.9 X10^3/uL (4.5-11.0) L 12/21/20 14:40 RBC 3.92 X10^6/uL (4.0-5.2) L 12/21/20 14:40 Hgb 10.4 g/dL (12.0-16.0) L 12/21/20 14:40 Hct 32.7 % (36-46) L 12/21/20 14:40 MCV 83.5 fL (80-100) 12/21/20 14:40 MCH 26.7 PG (26-34) 12/21/20 14:40 MCHC 31.9 % (30-36) 12/21/20 14:40 RDW 21.6 % (11.6-14.8) H 12/21/20 14:40 Plt Count 85 X10^3/uL (150-400) L 10/26/20 13:36 Neut % (Auto) 57.0 % (50-75) 12/21/20 14:40 Lymph % (Auto) 16.3 % (25-40) L 12/21/20 14:40 [place] % (Auto) 12.4 % (3-14) 12/21/20 14:40 Eos % (Auto) 10.5 % (2-4) H 12/21/20 14:40 Baso % (Auto) 3.8 % (0-2) H 12/21/20 14:40 Neut # (Auto) 1700 /uL (5067-2933) 12/21/20 14:40 Lymph # (Auto) 500 /uL (3538-8703) L 12/21/20 14:40 [place] # (Auto) 400 /uL (0-900) 12/21/20 14:40 Eos # (Auto) 300 /uL (0-450) 12/21/20 14:40 Baso # (Auto) 100 /uL (0-100) 12/21/20 14:40 Sodium 136 mmol/L (137-145) L 12/21/20 14:40 Potassium 4.0 mmol/L (3.4-5.1) 12/21/20 14:40 Chloride 103 mmol/L (98-107) 12/21/20 14:40 Carbon Dioxide 30 mmol/L (22-32) 12/21/20 14:40 BUN 10 mg/dL (7-17) 12/21/20 14:40 Creatinine 0.68 mg/dL (0.52-1.04) 12/21/20 14:40 Estimated GFR > 60.0 mL/min (>60) 12/21/20 14:40 BUN/Creatinine Ratio 14.7 (6-22) 12/21/20 14:40 Glucose 346 mg/dL (80-110) H 12/21/20 14:40 Calcium 8.3 mg/dL (8.4-10.2) L 12/21/20 14:40 Magnesium 1.7 mg/dL (1.6-2.3) 10/26/20 14:03 Total Bilirubin 0.2 mg/dL (0.2-1.3) 12/21/20 14:40 AST 49 IU/L (14-36) H 12/21/20 14:40 ALT 43 IU/L (<35) H 12/21/20 14:40 Alkaline Phosphatase 360 U/L (38-126) H 12/21/20 14:40 Total Protein 6.6 g/dL (6.3-8.2) 12/21/20 14:40 Albumin 3.2 g/dL (3.5-5.0) L 12/21/20 14:40 Globulin 3.4 g/dL (1.7-4.1) 12/21/20 14:40 Albumin/Globulin Ratio 0.9 (1.0-2.8) L 12/21/20 14:40 Urine 5-HIAA 24 Hour 10.4 mg/L (Undefined) 08/19/20 12:43 Ur 5-HIAA 24H Confirm 13.0 mg/24 hr (0.0-14.9) 08/19/20 12:43 Chromogranin A 66.9 ng/mL (0.0-101.8) 10/26/20 13:36 Assessment and Plan (1) Metastatic malignant neuroendocrine tumor to liver Overview: Diagnosed with 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 Patient underwent Y90 radioembolization, octreotide treatment, everolimus, and recently PRRT. On 09/07/2020, patient was started on lanreotide 120 mg subcutaneously every 3 months. Assessment: She just started on Lanreotide on 09/07/20. I explained to her that it is too soon to evaluate the response. I recommended continuing current Lanreotide injection. I will see her in about 3 weeks. Plan: CBC, CMP, CGA Ok to proceed to Lanreotide 120 mg q3w RTC in 3 weeks (2) Neuroendocrine tumor of pancreas See above. (3) Breast cancer, right breast Right breast ER positive cancer diagnosed in 2017 status post lumpectomy. Patient had a local recurrence in 2018 and under went resection followed by radiation therapy currently on letrozole. Clinically patient does not have any signs or symptoms to suggest disease recurrence or metastasis. On 08/31/2020, mammogram showed no evidence of malignancy. I will continue current treatment with letrozole. Plan: Continue letrozole 2.5 mg once a day Screening mammogram annually, next due 08/2021
[2020-12-21 15:37] LABS: Platelet Count 55 X10^3/uL (150-400)
[2020-12-21 15:38] LABS: Hypochromasia 1+; Microcytosis 1+; Platelet Estimate Decreased on smear; Platelet Morphology Comment NOTE
[2020-12-21] MEDS: LANREOTIDE 120 MG/0.5 ML SUBCUT (16:11)
[2021-01-18 16:37] VITALS: BP 147/81; PULSE 73; RESP 18; TEMP 36.7; O2SAT 99
--- NOTE | 2021-01-18 16:40 | P.PNONC_ITS ---
PN -Subjective Interval history: ID/CC: 60 year old with breast cancer and pancreatic neuroendocrine tumor History of Present Illness: Please see my previous note dated August 14 for more details. In that note, there are several typos due to sound-alike when dictating with MModal Fluency. Here is a corrected version. In Feb 2015, she presented with acute onset of right upper quadrant and right lateral lower anterior chest discomfort exacerbated by if breathing for about 6 days before he was evaluated at [facility]. CT scan showed multiple hypodense lesions in the liver in both lobes, largest 4.8 cm in diameter with an atrophic pancreas, 10 mm pancreatic duct, no discrete pancreatic masses and moderately enlarged upper abdominal lymph nodes adjacent to the pancreatic head. On 03/06/2015, patient underwent ultrasound-guided biopsy of two right hepatic lobe hypoechoic masses. The pathology showed epithelial neoplasm with features suggestive of metastatic neuroendocrine tumor, Ki67 9%. She was started on lanreotide 120 mg subcutaneously every 4 weeks in combination with everolimus 10 mg once a day. Unfortunately, within 8 months, she had progressive disease so the everolimus was held. The lanreotide continued. She underwent 2 hepatic lesion ablations: right lobe in January 2016 and the left lobe in April 2016. Her symptoms improved significantly after the ablation. During this same period of time, in late 2015, patient was diagnosed with endometrium cancer, stage I, treated with brachytherapy and D&C, diagnosed in late 2015. She also had right breast cancer diagnosed 08/2017, status post lumpectomy. She had local recurrence in 04/2018, and was treated with localized radiation. Her symptoms started to recur again and by January 2019, follow-up scans on 07/14/2019 CT showed new liver lesions measuring up to 2.8 cm. Patient was evaluated at [facility] for further recommendations. Her dosage of Lanreotide was increased to 120 mg subcu every 3 weeks. Dec 03, 2019 she was started on Lutetium 177 treatment every 8 weeks, completed 06/09/2020 at [facility]. Now she is also taking Creon, and Lomotil. Interim Events 01/18/2021: She said that she feel off today. She has shortness of breath, a lot of it recently She is also reporting hand tremor, especially when knitting. She has had bouts of diarrhea, abdominal pain, and RUQ discomfort and pain. mild to moderate, She is taking lomotil and it will slow down the diarrhea. She does not think that Lanreotide is helpful She is having horrible night seats Her faces flushed Weight has remained stable. She does get dizzy and light headedness. she is prone to losing balance. She felt weird, and is slanting when walking. - Patient Self-Reported Symptoms SR Constitution: Fatigue/Malaise, Night Sweats SR eye issues: Vision changes SR ears, nose, mouth, throat issues: Cough, Difficulty swallowing, Bleeding gums SR respiratory issues: Difficulty breathing, Mucous SR Cardiovascular issues: Dizzy/lightheaded SR Skin issues: Dry skin, Skin rash or itching SR Gastrointestinal issues: Nausea, Diarrhea, Abdominal pain SR Musculoskeletal issues: Muscle pain or cramps, Cold hands or feet, Difficulty walking SR Neuro issues: Headache, Lightheaded/dizzy, Numbness or tingling, Tremors or shaking, Difficulty balancing SR Endocrine issues: Cold intolerance, Excessive thirst - Additional ROS All systems PM: reviewed and no additional remarkable complaints except as stated Home Medications and Allergies Home Medications Medication Instructions Recorded Confirmed Type insulin aspart U-100 [Novolog 0 unit SUBCUT DIRECTED 09/15/19 09/18/20 History Flexpen U-100 Insulin] insulin degludec [Tresiba 120 unit SUBCUT DAILY 09/15/19 09/18/20 History FlexTouch U-200] naloxone [Narcan] 1 spray INTRANASAL PRN PRN 09/15/19 09/18/20 History letrozole 2.5 mg tablet 2.5 mg PO DAILY tab 05/10/20 09/18/20 History lorazepam 1 mg tablet 5 mg PO BEDTIME PRN tab 05/10/20 09/18/20 History atorvastatin 40 mg PO BEDTIME 08/14/20 09/18/20 History diphenoxylate-atropine [Lomotil] 1 tab TID 08/14/20 09/18/20 History gabapentin 900 mg PO QID 08/14/20 09/18/20 History [id number] [Creon] 1 cap PO TID 08/14/20 09/18/20 History metoprolol succinate 12.5 mg PO BID 08/14/20 09/18/20 History potassium citrate 20 meq PO BID 08/14/20 09/18/20 History morphine 15 mg PO Q12H PRN 08/17/20 09/18/20 History Allergies Allergy/AdvReac Type Severity Reaction Status Date / Time hydromorphone [From Dilaudid] AdvReac Verified 07/26/20 15:43 morphine AdvReac Verified 07/26/20 15:43 Penicillins AdvReac Verified 07/26/20 15:43 prochlorperazine AdvReac Verified 07/26/20 15:43 [From Compazine] Sulfa (Sulfonamide AdvReac Verified 07/26/20 15:43 Antibiotics) Exam Vital signs: Vital Signs Temp Pulse Resp BP Pulse Ox 01/18/21 16:37 98.0 F 73 18 147/81 H 99 Intake and Output 01/18/21 01/18/21 01/18/21 07:59 15:59 23:59 Other: Weight 109.2 kg Patient Weight 01/18/21 23:59 Weight 109.2 kg Results - Labs Laboratory Last Values WBC 2.9 X10^3/uL (4.5-11.0) L 12/21/20 14:40 RBC 3.92 X10^6/uL (4.0-5.2) L 12/21/20 14:40 Hgb 10.4 g/dL (12.0-16.0) L 12/21/20 14:40 Hct 32.7 % (36-46) L 12/21/20 14:40 MCV 83.5 fL (80-100) 12/21/20 14:40 MCH 26.7 PG (26-34) 12/21/20 14:40 MCHC 31.9 % (30-36) 12/21/20 14:40 RDW 21.6 % (11.6-14.8) H 12/21/20 14:40 Plt Count 55 X10^3/uL (150-400) L 12/21/20 14:40 Neut % (Auto) 57.0 % (50-75) 12/21/20 14:40 Lymph % (Auto) 16.3 % (25-40) L 12/21/20 14:40 [place] % (Auto) 12.4 % (3-14) 12/21/20 14:40 Eos % (Auto) 10.5 % (2-4) H 12/21/20 14:40 Baso % (Auto) 3.8 % (0-2) H 12/21/20 14:40 Neut # (Auto) 1700 /uL (4518-3077) 12/21/20 14:40 Lymph # (Auto) 500 /uL (2920-6368) L 12/21/20 14:40 [place] # (Auto) 400 /uL (0-900) 12/21/20 14:40 Eos # (Auto) 300 /uL (0-450) 12/21/20 14:40 Baso # (Auto) 100 /uL (0-100) 12/21/20 14:40 Platelet Estimate Decreased on smear 12/21/20 14:40 Plt Morphology Comment Note 12/21/20 14:40 RBC Morphology See below 12/21/20 14:40 Hypochromasia 1+ H 12/21/20 14:40 Microcytosis 1+ H 12/21/20 14:40 Sodium 136 mmol/L (137-145) L 12/21/20 14:40 Potassium 4.0 mmol/L (3.4-5.1) 12/21/20 14:40 Chloride 103 mmol/L (98-107) 12/21/20 14:40 Carbon Dioxide 30 mmol/L (22-32) 12/21/20 14:40 BUN 10 mg/dL (7-17) 12/21/20 14:40 Creatinine 0.68 mg/dL (0.52-1.04) 12/21/20 14:40 Estimated GFR > 60.0 mL/min (>60) 12/21/20 14:40 BUN/Creatinine Ratio 14.7 (6-22) 12/21/20 14:40 Glucose 346 mg/dL (80-110) H 12/21/20 14:40 Calcium 8.3 mg/dL (8.4-10.2) L 12/21/20 14:40 Magnesium 1.7 mg/dL (1.6-2.3) 10/26/20 14:03 Total Bilirubin 0.2 mg/dL (0.2-1.3) 12/21/20 14:40 AST 49 IU/L (14-36) H 12/21/20 14:40 ALT 43 IU/L (<35) H 12/21/20 14:40 Alkaline Phosphatase 360 U/L (38-126) H 12/21/20 14:40 Total Protein 6.6 g/dL (6.3-8.2) 12/21/20 14:40 Albumin 3.2 g/dL (3.5-5.0) L 12/21/20 14:40 Globulin 3.4 g/dL (1.7-4.1) 12/21/20 14:40 Albumin/Globulin Ratio 0.9 (1.0-2.8) L 12/21/20 14:40 Urine 5-HIAA 24 Hour 10.4 mg/L (Undefined) 08/19/20 12:43 Ur 5-HIAA 24H Confirm 13.0 mg/24 hr (0.0-14.9) 08/19/20 12:43 Chromogranin A 66.9 ng/mL (0.0-101.8) 10/26/20 13:36 Assessment and Plan (1) Metastatic malignant neuroendocrine tumor to liver Overview: She was diagnosed with 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 Patient underwent Y90 radioembolization, octreotide treatment, everolimus, and PRRT. On 09/07/2020, patient was started on lanreotide 120 mg subcutaneously every 3 months. MyRisk on 08/17/2020 showed no mutation in BRCA1/2, but an inconclusive TP53 mutation ([id number])) . Assessment: She is here for scheduled than real tight injection. Clinically patient has a lot of nonspecific symptoms that could be related to the known diagnosis of neuroendocrine tumor as well as the breast cancer (see below). Patient is now moving to [facility] and will continue follow-up with Dr. Brenner. According to patient, bone marrow aspiration biopsy has already been scheduled. Patient recently was found to have declining thrombocytopenia and worsening anemia which the apparent etiology is not clear. Plan: Ok to proceed to Lanreotide 120 mg today Follow up PRN. She is moving to [place], [place] (2) Neuroendocrine tumor of pancreas See above. (3) Breast cancer, right breast Right breast ER positive cancer diagnosed in 2017 status post lumpectomy. Patient had a local recurrence in 2018 and under went resection followed by radiation therapy currently on letrozole. On 08/31/2020, mammogram showed no evidence of malignancy. Clinically patient does not have any signs or symptoms to suggest disease recurrence or metastasis. I will continue current treatment with letrozole. Plan: Continue letrozole 2.5 mg once a day Screening mammogram annually, next due 08/2021
[2021-01-18 17:23] LABS: Alanine Aminotransferase 42 IU/L (<35); Albumin 3.4 g/dL (3.5-5.0); Albumin Globulin Ratio 0.9 (1.0-2.8); Alkaline Phosphatase 355 U/L (38-126); Aspartate Aminotransferase 61 IU/L (14-36); BUN Creatinine Ratio 20.3 (6-22); Bilirubin Total 0.4 mg/dL (0.2-1.3); Blood Urea Nitrogen 14 mg/dL (7-17); Carbon Dioxide 30 mmol/L (22-32); Chloride 105 mmol/L (98-107); Estimated Glomerular Filt Rate > 60.0 mL/min (>60); Globulin 3.9 g/dL (1.7-4.1); Glucose 293 mg/dL (80-110); HEMOLYSIS < 15 (0-50); Potassium 3.8 mmol/L (3.4-5.1); Sodium 138 mmol/L (137-145); Total Protein 7.3 g/dL (6.3-8.2)
[2021-01-18] MEDS: LANREOTIDE 120 MG/0.5 ML SUBCUT (17:36)
[2021-01-18 17:46] LABS: Hematocrit 34.3 % (36-46); Hemoglobin 11.2 g/dL (12.0-16.0); Mean Corpuscular HGB Conc 32.6 % (30-36); Mean Corpuscular Hemoglobin 26.7 PG (26-34); Red Blood Cell Count 4.18 X10^6/uL (4.0-5.2); Red Cell Distribution Width 22.5 % (11.6-14.8); White Blood Cell Count 2.8 X10^3/uL (4.5-11.0)
[2021-01-18 17:48] LABS: Add Manual Diff / Slide Review YES
[2021-01-18 17:51] LABS: Platelet Count 56 X10^3/uL (150-400)
[2021-01-18 17:56] LABS: Neutrophils Absolute Manual 1624 /uL (3000-5900); Total Cells Counted 50
[2021-01-18 17:57] LABS: Anisocytosis 1+
[2021-01-18 17:58] LABS: Microcytosis 1+; Poikilocytosis 1+
== END ==
PROVIDERS: PCP Internal Medicine; Visit Provider Internal Medicine Hematology & Oncology
DX: Z51.11 Encounter for antineoplastic chemotherapy (principal); C7A.8 Other malignant neuroendocrine tumors; C7B.8 Other secondary neuroendocrine tumors; C50.911 Malignant neoplasm of unspecified site of right female breast; Z17.0 Estrogen receptor positive status [ER+]; Z79.811 Long term (current) use of aromatase inhibitors; Z85.42 Personal history of malignant neoplasm of other parts of uterus
CPT/HCPCS: 36415; 80053; 83497; 83735; 85007; 85025; 86316; 96401; 96402; 99203; 99213; 99214; J1930